=== PATIENT | female | born 1985 | race Caucasian/White ===

== ENCOUNTER 2017-07-04 15:02 | Inpatient (IN) | payer BC, SELFPAY ==
--- NOTE | 2017-07-04 15:27 | US_ITS ---
STUDY: RENAL ULTRASOUND - COMPLETE REASON FOR EXAM: Female, 31 years old. Flank pain TECHNIQUE: Ultrasound evaluation of the kidneys was performed with real-time and static ortega-scale imaging. COMPARISON: None. FINDINGS: RIGHT KIDNEY: Normal location of the right kidney, which is normal in size. The right kidney measures 11.4 cm. There is a normal cortex of the right kidney. The renal cortex measures 2.7 cm. There is no right renal mass or cyst. There are no right renal calculi. There is no right hydronephrosis. DISTAL RIGHT URETER: There is non-visualization of the distal right ureter. There is no demonstrated right ureterovesical junction calculus. There is no demonstrated right ureteral jet. LEFT KIDNEY: Normal location of the left kidney, which is normal in size. The left kidney measures 11.5 cm. There is a normal cortex of the left kidney. The renal cortex measures 2.1 cm. There is no left renal mass or cyst. There are no left renal calculi. There is no left hydronephrosis. DISTAL LEFT URETER: There is non-visualization of the distal left ureter. There is no demonstrated left ureterovesical junction calculus. There is no demonstrated left ureteral jet. The bladder is empty. US/Kidney and Bladder IMPRESSION: Normal ultrasound of the kidneys. Electronically Signed: Brendon Hartmann DO at 22:01 EDT , Service support ,
[2017-07-04 15:28] VITALS: BMI 27.0
--- NOTE | 2017-07-04 15:29 | PCM.HP.OB ---
History Date of Admission: 07/04/17 Final BEST: 12/30/17 Final BEST Source: US <20 weeks Gestational age: 14 Weeks and 3 Days History of this : @ 14.3 WKS WITH BILATERAL FLANK PAIN AND DYSURIA. TREATED FOR UTI BUT WORSENING BACK PAIN, LOW GRADE TEMP AT HOME. PT REPORTS CAME TO OFFICE WITH SEVERE BACK PAIN 08/06 - TYLENOL NOT HELPING. Pertinent Past Medical History: ASTHMA BACTRIM Current Medications Acetaminophen (Tylenol) 1,000 mg PO Q8H PRN PRN PRN Reason: ELEVATED TEMP Ceftriaxone Sodium (Rocephin) 1 gm in 50 mls @ 100 mls/hr IV Q24 FE Sodium Chloride () 1,000 mls @ 150 mls/hr IV .Q6H40M FE Oxycodone HCl (Oxyir) 5 mg PO Q4H PRN PRN PRN Reason: PAIN Smoking Status: Never smoker Alcohol: None Drug Use: none Number of Fetus(es): 1 Review of Systems Constitutional: Denies: Chills, Fever HEENT: Denies: Difficulty Swallowing Cardiovascular: Denies: Chest Pain, Light Headedness, Palpitations Respiratory: Denies: Cough Gastrointestinal: Denies: Abdominal Pain, Diarrhea, Nausea, Vomiting Genitourinary: Denies: Dysuria, Frequency, Urgency Musculoskeletal: Reports: - - BILATERAL FLANK PAIN Physical Exam General: Alert, Oriented x3 Cardiovascular: Regular rate Lungs: Clear to auscultation Abdomen: Soft, Non Tender, Gravid Extremities:: No clubbing, No edema, Other - + BILATERAL CVA TENDERNESS Assessment/Plan 31YO @ 14.3 WKS WITH PYELONEPHRITIS 1) ADMIT 2) RENAL ULTRASOUND 3) REGULAR DIET, IVF 4) BLOOD CULTURES X 1 5) CEFTRIAXONE 1G Q24HRS 6) TYLENOL AND OXYCODONE FOR PAIN 7) CBC TODAY REPEAT TOMORROW AM 8) BMP TODAY
[2017-07-04 15:38] VITALS: BP 120/77; PULSE 93; RESP 16; TEMP 36.7; O2SAT 99
[2017-07-04 16:11] LABS: Absolute Neutrophil Count 14.4 X10^3/uL (2.0-7.7); Basophil# 0.01 X10^3/uL; Basophil% 0.1 % (0-1); Eosinophil# 0.01 X10^3/uL; Eosinophils% 0.1 % (0-5); Hematocrit 36.6 % (37-47); Hemoglobin 12.7 g/dl (12.0-15.0); Lymphocyte % 4.4 % (19-41); Mean Corp Hgb Conc 34.7 g/gl (32-36); Mean Corpuscular Hgb 31.1 pg (27.0-32.0); Mean Corpuscular Volume 89.7 fL (81-99); Mean Platelet Vol. 9.6 fl (6.2-12.0); Monocyte# 0.93 X10^3/uL; Monocyte% 5.8 % (0-10); Neutrophil # 14.39 X10^3/uL (2.7-7.7); Neutrophil % 89.4 % (47-70); Platelet Count 179 K/mm3 (150-450); RBC Distribution Width CV 12.7 % (11.6-14.6); RBC Distribution Width SD 41.3 fl (35.1-43.9); Red Blood Count 4.08 M/mm3 (4.2-5.4); White Blood Count 16.1 K/mm3 (4.4-11.0)
[2017-07-04 16:12] LABS: POSITIVE DIFFERENTIAL NO
[2017-07-04 16:13] LABS: POSITIVE COUNT NO; POSITIVE MORPHOLOGY NO
[2017-07-04 16:38] LABS: Anion Gap 12 (5-15); BUN 6 mg/dL (7-18); BUN/Creat Ratio 10.4 RATIO (10-20); Calcium,Total 7.8 mg/dL (8.5-10.1); Chloride 104 mmol/L (98-107); Creatinine, Serum 0.58 mg/dL (0.55-1.02); EST Glomerular Filtration Rate 128 mL/min (>60); Est Glom Filt Rate - Afr Amer 154 mL/min (>60); Estimated Creatinine Clearance 129.15 ml/min; Glucose 76 mg/dL (74-106); Potassium 3.3 mmol/L (3.5-5.1); Sodium Level 135 mmol/L (136-145)
[2017-07-04] MEDS: 0.9% Normal Saline 1,000 ML 150 ML IV ×2 (17:18→23:48)
[2017-07-04] MEDS: Ceftriaxone 1 GM/50 ML BAG IV (18:53)
[2017-07-04] MEDS: oxyCODONE 5 MG Tablet PO ×2 (18:54→23:49)
[2017-07-04 21:25] VITALS: BP 114/77; PULSE 89; RESP 18; TEMP 37.1; O2SAT 100
[2017-07-04] MEDS: Acetaminophen 500 MG Tablet 1000 MG PO (21:39)
[2017-07-05] MEDS: HYDROmorphone 1 MG/ML Syringe IV (03:17)
[2017-07-05] MEDS: 0.9% NaCl Peripheral Flush Adult/Peds IV (03:18)
[2017-07-05 03:19] VITALS: BP 102/62; PULSE 103; RESP 20; TEMP 36.9; O2SAT 100
[2017-07-05 06:12] LABS: Absolute Lymphocyte Count 0.98 X10^3/ul (0.83-4.51); Absolute Neutrophil Count 10.5 X10^3/uL (2.0-7.7); Basophil# 0.01 X10^3/uL; Basophil% 0.1 % (0-1); Eosinophil# 0.03 X10^3/uL; Eosinophils% 0.2 % (0-5); Hemoglobin 10.8 g/dl (12.0-15.0); Lymphocyte # 0.98 X10^3/ul (4.0); Lymphocyte % 7.9 % (19-41); Mean Corp Hgb Conc 34.8 g/gl (32-36); Mean Corpuscular Hgb 31.8 pg (27.0-32.0); Mean Corpuscular Volume 91.2 fL (81-99); Mean Platelet Vol. 9.9 fl (6.2-12.0); Monocyte# 0.95 X10^3/uL; Monocyte% 7.6 % (0-10); Neutrophil # 10.45 X10^3/uL (2.7-7.7); Platelet Count 155 K/mm3 (150-450); RBC Distribution Width CV 12.3 % (11.6-14.6); White Blood Count 12.4 K/mm3 (4.4-11.0)
[2017-07-05 06:19] LABS: POSITIVE COUNT NO; POSITIVE DIFFERENTIAL NO; POSITIVE MORPHOLOGY NO
[2017-07-05] MEDS: 0.9% Normal Saline 1,000 ML 150 ML IV ×3 (06:29→19:43)
[2017-07-05] MEDS: Acetaminophen 500 MG Tablet 1000 MG PO ×3 (06:30→23:56)
[2017-07-05] MEDS: oxyCODONE 5 MG Tablet PO ×5 (06:31→23:56)
[2017-07-05 08:19] VITALS: BP 101/54; PULSE 77; RESP 16; TEMP 36.6; O2SAT 98
--- NOTE | 2017-07-05 10:05 | CASEMGMT ---
MELIA LOBATO Face to Face with patient for initial transition planning/care coordination assessment. MELIA LOBATO introduced self and role at [facility]. Patient sitting in chair, alert and oriented. Patient willing to participate in assessment and is able to answer all questions appropriately. Care providers, pharmacy, and demographics verified. Patient lives with spouse in a 1 story home. Patient drives but also can rely on for transportation. Patient wishes to discharge home, denies needs at this time. Patient states that she does not have and PCP, MELIA LOBATO will provide list of local providers to patient. Patient states she has no further needs or concerns at this time. CM to follow for discharge planning needs that may arise. Disposition Plan: Patient to discharge home with family support and follow-up plans in place.
[2017-07-05] MEDS: Ceftriaxone 1 GM/50 ML BAG IV (10:28)
[2017-07-05 11:27] VITALS: BP 94/53; PULSE 63; RESP 16; TEMP 36.7; O2SAT 98
[2017-07-05 14:12] LABS: Absolute Lymphocyte Count 0.74 X10^3/ul (0.83-4.51); Absolute Neutrophil Count 9.5 X10^3/uL (2.0-7.7); Basophil# 0.01 X10^3/uL; Basophil% 0.1 % (0-1); Eosinophil# 0.05 X10^3/uL; Eosinophils% 0.5 % (0-5); Hematocrit 32.1 % (37-47); Hemoglobin 11.1 g/dl (12.0-15.0); Lymphocyte # 0.74 X10^3/ul (4.0); Lymphocyte % 6.7 % (19-41); Mean Corp Hgb Conc 34.6 g/gl (32-36); Mean Corpuscular Hgb 31.8 pg (27.0-32.0); Mean Platelet Vol. 9.2 fl (6.2-12.0); Monocyte# 0.76 X10^3/uL; Monocyte% 6.9 % (0-10); Neutrophil # 9.48 X10^3/uL (2.7-7.7); Neutrophil % 85.7 % (47-70); Platelet Count 156 K/mm3 (150-450); RBC Distribution Width CV 12.4 % (11.6-14.6); RBC Distribution Width SD 40.6 fl (35.1-43.9); Red Blood Count 3.49 M/mm3 (4.2-5.4); White Blood Count 11.1 K/mm3 (4.4-11.0)
[2017-07-05 14:21] LABS: POSITIVE COUNT NO; POSITIVE DIFFERENTIAL NO; POSITIVE MORPHOLOGY NO
[2017-07-05 14:50] VITALS: BP 102/62; PULSE 90; RESP 16; TEMP 37.1; O2SAT 100
--- NOTE | 2017-07-05 17:46 | PN.OBGYN_ITS ---
Patient Problems: Active and Suspected Problems Pyelonephritis affecting (Acute) Subjective: Patient reports her flank pain has decreased as the day has progressed though she still reports bilateral flank pain to firm palpation. Patient denies dysuria , vaginal bleeding, or other vaginal discharge. IV Rocephin infusing as ordered. Patient denies fever, denies SOB, denies heart palpitations. Objective: + CVAT bilaterally with pain elicited Left > Right side Abd: NT x 4 quadrants, no suprapubic pain SVE: deferred - Physical Exam General: Alert, Oriented x3, Cooperative HEENT: Atraumatic, Normocephalic Oral: Moist Mucosa Neck: Supple Lungs: Clear to auscultation, Normal air movement Cardiovascular: Regular rate, No murmurs Abdomen: Soft, Non Tender, Appropriate for Gestational Age, - - + CVAT noted Left > Right Extremities: No edema, Capillary Refill Less than 3 Seconds Skin: No rashes, No breakdown Musculoskeletal: No Tenderness to Palpation of Joints or Extremities Neurological: Cranial nerves II-XII grossly intact Psych/Mental Status: Normal Affect, Appropriate, Alert and oriented to time, place, person, mood and affect Vital Signs Temp Pulse Resp BP Pulse Ox 98.7 F 90 16 102/62 100 07/05/17 14:50 07/05/17 14:50 07/05/17 14:50 07/05/17 14:50 07/05/17 14:50 Oxygen Delivery Method Room Air Weight: 167 lb 5.294 oz Body Mass Index (BMI) 27.0 Intake and Output for Last 24 Hours 07/03/17 07/04/17 07/05/17 23:59 23:59 23:59 Intake Total 2581 / 2581 3916 / 3916 Balance 2581 / 2581 3916 / 3916 Laboratory Tests Past 24 Hrs 07/05/17 07/05/17 05:54 14:00 WBC 12.4 H 11.1 H RBC 3.40 L 3.49 L Hgb 10.8 L 11.1 L Hct 31.0 L 32.1 L MCV 91.2 92.0 MCH 31.8 31.8 MCHC 34.8 34.6 RDW 12.3 12.4 RDW Differential 40.0 40.6 Plt Count 155 156 MPV 9.9 9.2 Immature Gran % (Auto) 0.200 0.100 Neut % (Auto) 84.0 H 85.7 H Lymph % (Auto) 7.9 L 6.7 L [place] % (Auto) 7.6 6.9 Eos % (Auto) 0.2 0.5 Baso % (Auto) 0.1 0.1 Absolute Neuts (auto) 10.5 H 9.5 H Absolute Lymphs (auto) 0.98 0.74 L Total Counted Not Reportable Not Reportable Medical Necessity - Tobacco Use Smoking Status: Never smoker Assessment/Plan Active and Suspected Problems Pyelonephritis affecting (Acute) A: 31 y/o @ 14.4 weeks gestation, Acute Pyelonephritis P: 1) Blood Culture- pending 2) CBC - WBCs trending down to normal range. Anticipate repeat CBC in AM 3) Anticipate discharge to home tomorrow pending resolution of flank pain - plan to discharge patient home with Keflex 500mg PO q 6 hours x 7 days followed by Macrobid 100mg PO daily until delivery for UTI prophylaxis. 4) Dr. Jesse PEACE informed of patient status and is in agreement with plan of care. Yaritza Dwyer CNM
[2017-07-05 19:45] VITALS: BP 112/66; PULSE 87; RESP 18; TEMP 36.4; O2SAT 100
[2017-07-05 19:58] VITALS: TEMP 36.6
[2017-07-06 01:45] VITALS: BP 95/52; PULSE 83; RESP 16; TEMP 36.8; O2SAT 98
[2017-07-06] MEDS: 0.9% Normal Saline 1,000 ML 150 ML IV ×2 (01:53→08:15)
[2017-07-06 08:06] VITALS: PULSE 84; RESP 16; TEMP 37.1; O2SAT 98
[2017-07-06] MEDS: Acetaminophen 500 MG Tablet 1000 MG PO (08:16)
--- NOTE | 2017-07-06 08:36 | PCM.PN.OB ---
Patient Problems: Active and Suspected Problems Pyelonephritis affecting (Acute) Subjective: Flank pain is improved. Denies concerns. - Physical Exam General: Alert, Oriented x3 Abdomen: Soft, Non Tender, Non-Distended, Gravid - Back; no flank tenderness Extremities: No Calf Tenderness Vital Signs Temp Pulse Resp BP Pulse Ox 98.7 F 84 16 95/52 L 98 07/06/17 08:06 07/06/17 08:06 07/06/17 08:06 07/06/17 01:45 07/06/17 08:06 Oxygen Delivery Method Room Air Weight: 167 lb 5.294 oz Body Mass Index (BMI) 27.0 Intake and Output for Last 24 Hours 07/04/17 07/05/17 07/06/17 23:59 23:59 23:59 Intake Total 2581 / 2581 7339 / 7339 1354 / 1354 Balance 2581 / 2581 7339 / 7339 1354 / 1354 Laboratory Tests Past 24 Hrs 07/05/17 14:00 WBC 11.1 H RBC 3.49 L Hgb 11.1 L Hct 32.1 L MCV 92.0 MCH 31.8 MCHC 34.6 RDW 12.4 RDW Differential 40.6 Plt Count 156 MPV 9.2 Immature Gran % (Auto) 0.100 Neut % (Auto) 85.7 H Lymph % (Auto) 6.7 L S[place] % (Auto) 6.9 Eos % (Auto) 0.5 Baso % (Auto) 0.1 Absolute Neuts (auto) 9.5 H Absolute Lymphs (auto) 0.74 L Total Counted Not Reportable Medical Necessity - Tobacco Use Smoking Status: Never smoker Assessment/Plan Active and Suspected Problems Pyelonephritis affecting (Acute) HD#3 with pyelonephritis at 14&5 weeks Plan for d/c home today Rx keflex qid for 1 week F/u in office next week or PRN All questions answered & patient agrees with plan
--- NOTE | 2017-07-06 08:42 | PCM.DC ---
- Discharge Diagnoses Current Active Problems: Current Active and Chronic Problems Pyelonephritis affecting (Acute) You will use the following diet at home:: Regular Discharge Activity: May Drive, May Shower Call your doctor if you observe: Fever of 101 or Higher, Coldness, Increased Pain, Numbness or Tingling, Change in Color, Inability to urinate, Inability to have a bowel movement, Using more than one pad per hour, Shortness of breath, Fainting spells, Chest pain, Increased palpitations (irregular heartbeat), Uncontrolled pain Allergies/Adverse Reactions: Allergies Penicillins Adverse Reaction (Verified 07/04/17 16:02) Hives Sulfa (Sulfonamide Antibiotics) Adverse Reaction (Verified 07/04/17 16:02) Hives Medications to take at Discharge Albuterol Sulfate [Proventil Hfa] 90 mcg PRN 07/04/17 Pediatric Multivit Comb. No.49 [Flintstones Gummies] 1 each PO DAILY 07/04/17 Acetaminophen [Tylenol Extra Strength] 1,000 mg PO Q8 PRN #60 tab 07/06/17 Cephalexin [Keflex] 500 mg PO Q6 #28 cap 07/06/17 The following prescriptions were given: Acetaminophen [Tylenol Extra Strength] 1,000 mg PO Q8 PRN #60 tab PRN Reason: Pain Cephalexin [Keflex] 500 mg PO Q6 #28 cap Primary Care Physician: Care Physician,No Primary [Primary Care Provider] -
[2017-07-06] MEDS: Ceftriaxone 1 GM/50 ML BAG IV (10:04)
[2017-07-06 13:32] VITALS: BP 108/67; PULSE 86; RESP 18; TEMP 37.1; O2SAT 100
== END 2017-07-06 13:42 | disposition home or self-care (01) | DRG 781 ==
PROVIDERS: Admitting Provider Obstetrics & Gynecology; Visit Provider Obstetrics & Gynecology
DX: O23.02 Infections of kidney in pregnancy, second trimester (principal); N10 Acute pyelonephritis; Z3A.14 14 weeks gestation of pregnancy
CPT/HCPCS: 36415; 76770; 80048; 85025; 87040; J7030; A4216

== ENCOUNTER 2018-01-08 05:26 | Inpatient (IN) | payer BC, SELFPAY ==
--- NOTE | 2018-01-06 19:55 | HP.PCM_ITS ---
- Problem List (1) 41 weeks gestation of Status: Acute History Date of Admission: 07/04/17 Final BEST: 12/30/17 Final BEST Source: US <20 weeks Gestational age: 41 Weeks and 0 Days History of this : This is a 32 year-old, G 1, P 0, at 41 weeks gestational age. Denies ctx, vb, lof. Good FM. significant for the following: - pyelonephritis in : has been on suppressive therapy - hx of depression and anxiety: has been off of medication in the , was previously taking Xanax and Celexa - poor weight gain in the : US at 32 wks EFW 2071g (50%) Medical History: Medical History (Last Updated 01/06/18 @ 19:53 by Nasreen Goldman DO) Anxiety F41.9 Depression F32.9 Surgical History: Surgical History (Last Updated 01/06/18 @ 19:55 by Nasreen Goldman DO) History of throat surgery Z98.890 S/P foot surgery, left Z98.890 S/P wrist surgery Z98.890 Allergies Penicillins Adverse Reaction (Verified 07/04/17 16:02) Hives Sulfa (Sulfonamide Antibiotics) Adverse Reaction (Verified 07/04/17 16:02) Hives Home Medications: Home Medications Albuterol Sulfate [Proventil Hfa] 90 mcg PRN 07/04/17 Pediatric Multivit Comb. No.49 [Flintstones Gummies] 1 each PO DAILY 07/04/17 Acetaminophen [Tylenol Extra Strength] 1,000 mg PO Q8 PRN #60 tab 07/06/17 Cephalexin [Keflex] 500 mg PO Q6 #28 cap 07/06/17 Smoking Status: Never smoker Number of Fetus(es): 1 Heart Tracing: FHT 120/mod marlen/+accels/no decels TOCO Analysis: quiet History Past Pregnancies: Past Pregnancies Delivery Date Name GA/Weeks Outcome Route Weight Gender Labor Length Anesthesia Delivery Location Provider FOB Labs: GBS neg, Rh+, RI, RPR NR, HIV NR, HepB neg, GC/CT neg, 1hr GTT 115, Expected Delivery Method: Spontaneous Vaginal Review of Systems Gynecological: Reports: - - No ctx, vb, lof, Good FM Physical Exam General: Alert, Oriented x3 HEENT: Atraumatic Lungs: - - No increased resp effort Abdomen: Soft, Non Tender, Gravid Extremities:: No edema Neurological: Neuro grossly intact DOCTORATE OF CHIROPRACTIC: Normal external genitalia Estimated gestational size: Appropriate for gestational size Presentation: Cephalic Cervix Dilation (cm): 1 Station: -2 Effacement (%): 70 Assessment/Plan All Active Problems 41 weeks gestation of (Acute) Pyelonephritis affecting (Acute) This is a 32 year-old, G 1, P 0, at 41 weeks gestational age who presents for scheduled IOL. - Intracervical lawrence and PO cytotec induction, followed by pitocin - Pt desires epidural - GBS negative - Routine intrapartum care - Discussed expectations with patient
[2018-01-06 20:27] VITALS: BMI 41.1
[2018-01-06 20:55] LABS: Hematocrit 36.3 % (37-47); Hemoglobin 12.4 g/dl (12.0-15.0); Mean Corp Hgb Conc 34.2 g/gl (32-36); Mean Corpuscular Hgb 31.5 pg (27.0-32.0); Mean Corpuscular Volume 92.1 fL (81-99); Mean Platelet Vol. 10.9 fl (6.2-12.0); Platelet Count 206 K/mm3 (150-450); RBC Distribution Width CV 13.3 % (11.6-14.6); RBC Distribution Width SD 44.3 fl (35.1-43.9); Red Blood Count 3.94 M/mm3 (4.2-5.4); White Blood Count 11.7 K/mm3 (4.4-11.0)
[2018-01-06 21:05] LABS: Scan Indicated on CBC? Y/N NO
--- NOTE | 2018-01-06 22:51 | PCM.PN.BLA ---
Progress Note Intracervical lawrence placed in usual fashion. FHT category 1.
[2018-01-06] MEDS: 0.9% Normal Saline 100 ML IV.SOLN. INTRA-UTER (23:09)
[2018-01-06] MEDS: miSOPROStol 25 MCG TABLET PO (23:10)
[2018-01-06] MEDS: Acetaminophen 325 MG Tablet PO (23:16)
[2018-01-07] MEDS: Nalbuphine 10 MG/ML Ampul IV ×2 (01:27→16:47)
[2018-01-07] MEDS: Oxytocin 30 units/NS 500 ml 30 UNITS/500 ML IV.SOLN IV (08:13)
[2018-01-07] MEDS: Lactated Ringers 1,000 ML 50 ML IV ×3 (08:13→21:58)
--- NOTE | 2018-01-07 08:37 | PCM.PN.BLA ---
Progress Note Collier out this morning. Pt doing well. Pit started at 2 mu/min. Discussed plan of care for today with patient. Continue current management.
[2018-01-07] MEDS: fentaNYL-bupivacaine (epidural) 100 ML BAG EPIDURAL ×2 (18:45→23:28)
--- NOTE | 2018-01-07 21:03 | PN_ITS ---
Progress Note Pt s/p epidural and comfortable. Doing well. Cvx 6/80/-1, no membranes palpated. SROM. IUPC and FSE placed. Pit at 14 mu/min. FHT 115/mod marlen/+accels/+occasional variable decels. [place] difficult to read. Continue current management.
[2018-01-07] MEDS: Mag Hydrox/Al Hydrox/Simeth 30 ML UDC PO (21:10)
[2018-01-08] MEDS: Ondansetron 4 MG/2 ML Vial IV (01:42)
[2018-01-08] MEDS: Amnioinfusion- 0.9% NS 1,000 ML IV.SOLN. 600 ML INTRA-UTER (02:19)
--- NOTE | 2018-01-08 02:45 | PN_ITS ---
Progress Note Cvx 10/100/+1 station. FHT 160mod marlen/+variable decels with pushing/no accels. [place] w/ ctx's q 1-3 min. Patient not feeling pressure with epidural. Given this and variable decels with pushing, will have anesthesia turn epidural down and give patient a 15-20 min break before pushing pushing again.
[2018-01-08] MEDS: Lactated Ringers 1,000 ML 50 ML IV (03:17)
[2018-01-08] MEDS: Oxytocin 30 units/NS 500 ml 30 UNITS/500 ML IV.SOLN 334 UNITS IV (04:48)
--- NOTE | 2018-01-08 05:15 | PCM.OB.VAG ---
- Problem List (1) 41 weeks gestation of Status: Acute Vaginal Delivery Maternal Presentation: Medically Indicated Induction Method of Induction: Pitocin, Collier Bulb, Cytotec Medical Reason for Induction: Post term Amniotic Membrane Rupture Type: Spontaneous Amniotic Fluid Description: Clear Final BEST: 12/30/17 Gestational age: 41 Weeks and 2 Days Date of Procedure: 01/08/18 Pre-Operative Diagnosis: IUP at 41 wks gestation, intolerance to labor Post-Operative Diagnosis: As above Surgery/ Procedure Performed: Vacuum Assisted Vaginal Delivery Type of Anesthesia: Epidural Description of Procedure: Patient complete and pushing for over 2 hours. in OP position and +2 station. Fetus AGA, pelvis adequate. Collier in place draining blood tinged urine. Epidural in place. heart tracing continued to show variable and late decelerations with pushing. Discussed risks, benefits, and alternatives to a vacuum-assisted vaginal delivery. Discussed risks for including but not limited to scalp lacerations, cephalohematoma, subgaleal hematoma. Discussed alternative: section. Patient verbally consented to a vacuum assisted vaginal delivery. Vacuum applied with release of suction in between each contraction. Vacuum was used during 4-5 contractions without any pop-offs. Vacuum was then removed. A midline episiotomy was made. Head was delivered in OP position. Anterior shoulder, posterior shoulder, and body of infant delivered without force or delay. VFI placed on mother's abdomen. Apgars were 8 and 9. Cord clamped and cut after 60 sec by FOB. Cord gases collected. Placenta delivered intact with 3 vessel cord. Uterus explored x 1. Fundus firm and bleeding hemostatic. 2nd degree perineal laceration repaired in usual fashion using 3-0 vicryl. Bleeding hemostatic. EBL 500 cc. Placental Delivery Description: Expressed Cord Vessel Description: 3 Vessels Cord Gases drawn per routine: ABG, VBG Drain: Collier to straight drain Estimated Blood Loss: 500 Infant A gender: Female (1 minute): 8 (5 minute): 9 Episiotomy Description: Midline Laceration: 2nd degree Medications given after delivery: IV Pitocin
[2018-01-08] MEDS: Oxytocin 30 units/NS 500 ml 30 UNITS/500 ML IV.SOLN 167 UNITS IV (05:18)
[2018-01-08] MEDS: Acetaminophen 500 MG Tablet 1000 MG PO ×2 (06:25→16:56)
[2018-01-08] MEDS: Ferrous Sulfate 325 MG Tablet PO (10:27)
[2018-01-08 12:15] VITALS: BP 124/69; PULSE 88; RESP 18; TEMP 37.3
[2018-01-08] MEDS: Ibuprofen 600 MG Tablet PO ×2 (14:56→23:30)
[2018-01-08 16:30] VITALS: BP 105/63; PULSE 90; RESP 18; TEMP 36.7
[2018-01-08] MEDS: Dibucaine 30 GM Tube 1 APPLIC TOPICAL (16:55)
[2018-01-08 20:00] VITALS: BP 98/56; PULSE 78; RESP 18; TEMP 36.8
[2018-01-08 23:50] VITALS: BP 110/72; PULSE 84; RESP 16; TEMP 36
[2018-01-09 03:30] VITALS: BP 99/60; PULSE 77; RESP 18; TEMP 36.8
--- NOTE | 2018-01-09 08:23 | PCM.PN.OB ---
Patient Problems: Active and Suspected Problems (Last Updated 01/06/18 @ 19:53 by Nasreen Goldman DO) 41 weeks gestation of (Acute) Subjective: Doing well. She has no complaints and feels ready to go home. Breast-feeding without difficulty. Ambulating and voiding without difficulty. Tolerating regular diet without nausea or vomiting denies lightheadedness, dizziness, chest pain, shortness of breath, leg pain. Lochia normal. - Physical Exam General: Alert, Oriented x3 HEENT: Atraumatic Lungs: - - No increased resp effort Abdomen: Soft, Non Tender, - - FF Extremities: No edema, No Calf Tenderness Skin: No rashes Neurological: Neuro grossly intact Psych/Mental Status: Normal Affect, Appropriate Vital Signs Temp Pulse Resp BP 98.3 F 77 18 99/60 01/09/18 03:30 01/09/18 03:30 01/09/18 03:30 01/09/18 03:30 Weight: 183 lb 6.793 oz Body Mass Index (BMI) 41.1 Intake and Output for Last 24 Hours 01/07/18 01/08/18 01/09/18 23:59 23:59 23:59 Intake Total 1410 / 1410 3596 / 3596 Output Total 900 / 900 2700 / 2700 Balance 510 / 510 896 / 896 Medical Necessity - Tobacco Use Smoking Status: Never smoker Assessment/Plan All Active Problems (Last Updated 01/06/18 @ 19:53 by Nasreen Goldman DO) Pyelonephritis affecting (Acute) 41 weeks gestation of (Acute) Patient is day 1 from a vacuum-assisted vaginal delivery. - without difficulty - Declines control - Doing well and desires to go home - D/c today. Reviewed discharge instructions
--- NOTE | 2018-01-09 08:26 | DCINST_ITS ---
Discharge Diet: No Restrictions Discharge Activity: May Drive, May Shower, May Take a Tub Bath May resume sexual activity in: 4-6 weeks Weight Bearing Status: Full weight bearing Lifting Restrictions: None Call your doctor if you observe: Fever of 101 or Higher, Inability to urinate, Inability to have a bowel movement, Using more than one pad per hour, Shortness of breath, Dizziness, Chest pain, Increased palpitations (irregular heartbeat), Calf discomfort, Uncontrolled pain Additional Instructions: If you experience any of the following, contact your healthcare provider. * Bleeding that soaks a pad every hour for 2 hours * Fever 100.4 or higher * Unrelieved incision or abdominal pain * Swelling, redness, discharge or bleeding from your incision or episiotomy site * Your incision begins to separate * Problems urinating (including inability to urinate or burning while urinating). * Visual changes * Severe headache * Flu-like symptoms * Pain or redness in one of both of your breasts * Pain, warmth, tenderness or swelling in your legs, especially the calf area * Frequent nausea and vomiting * Symptoms of depression or anxiety If you experience any of the following, call 911 or go to the nearest Emergency Room. * Chest pain * Problems breathing * Seizure activity * Partial or complete paralysis of a body part, slurred speech, weakness or drooping of the face, or a sudden inability to walk or hold your balance Allergies/Adverse Reactions: Allergies Penicillins Adverse Reaction (Verified 07/04/17 16:02) Hives Sulfa (Sulfonamide Antibiotics) Adverse Reaction (Verified 07/04/17 16:02) Hives Medications to take at Discharge Albuterol Sulfate [Proventil Hfa] 90 mcg INHALATION Q6H PRN PRN 07/04/17 Pediatric Multivit Comb. No.49 [Flintstones Gummies] 2 each PO DAILY 07/04/17 Acetaminophen [Tylenol Extra Strength] 1,000 mg PO Q8 PRN #60 tab 07/06/17 Cephalexin [Keflex] 500 mg PO Q6 01/07/18 Ferrous Sulfate [Iron] 325 mg PO DAILY 01/07/18 When: In 1-2 weeks if you desire. Also in 4-6 weeks for a appointment. Primary Care Physician: Care Physician,No Primary [Primary Care Provider] - Test Results: Test results from this visit will be discussed in further detail at your follow- up appointment, if applicable.
[2018-01-09 08:35] VITALS: BP 129/79; PULSE 93; RESP 18; TEMP 36.8
[2018-01-09] MEDS: Ferrous Sulfate 325 MG Tablet PO (08:46)
[2018-01-09] MEDS: Acetaminophen 500 MG Tablet 1000 MG PO ×2 (08:46→16:50)
[2018-01-09] MEDS: Senna/Docusate Sodium 1 Tablet PO (08:47)
--- NOTE | 2018-01-09 12:16 | CASEMGMT ---
Social Work Note Please see attached assessment. Information obtained from: Medical record, MOB and FOB. MOB is alert and oriented x4 and pleasant upon presentation. FOB is holding . Education: MOB graduated high school. Able to read and write and denies any comprehension concerns. Employment: Both MOB and FOB are employed FT. MOB has been approved for 12 weeks maternity leave. Report financial stability. Transportation: They report to have access to transportation. MH hx: MOB reports hx of anxiety and depression. Has not been on medication throughout , but was previously on Celexa and Xanax (PRN). This was prescribed through her PCP. Educated to PP Depression and informed to contact either her PCP or OB is symptoms persisted beyond 2 weeks. Substance Use: Denies substance use hx. No further needs or concerns expressed. Both made aware that SW is available if needs arise. Angie Barker, POWERPLANT OPERATOR, JUDY
[2018-01-09 14:51] VITALS: BP 96/57; PULSE 73; RESP 16; TEMP 37.2
[2018-01-09] MEDS: Etonogestrel 68 MG IMPLANT SQ (17:31)
--- NOTE | 2018-01-09 17:39 | PCM.OP.BLANK ---
Problem List (1) 41 weeks gestation of Status: Acute Operative Report Date of Procedure: 01/09/18 Discussed risks, benefits, and alternatives of Nexplanon. Reviewed irregular bleeding profile with Nexplanon. Patient signed consent. Left arm was selected for Nexplanon placement. A 10 cm site was marked from the medial epicondyle. Chlorhexidine was used to prep the area. 3cc of 1% lidocaine was injected along the site of Nexplanon placement. The Nexplanon device was inserted subcutaneously and the Nexplanon reno was released subcutaneously. The reno was palpated by myself as well as the patient in the correct position. Steri-Strips were placed over the incision site. A pressure dressing was placed over the site. Patient tolerated the procedure well.
--- NOTE | 2018-01-09 18:50 | NURSING ---
Dr. Manuel notified of baby under lights at this time. Pt will not be discharged until tomorrow. Dr. Manuel canceled DC order and states she will contact Dr. Goldman.
[2018-01-09 22:00] VITALS: BP 113/71; PULSE 82; RESP 16; TEMP 37.1; O2SAT 99
[2018-01-09] MEDS: Ibuprofen 600 MG Tablet PO (22:14)
[2018-01-10 02:15] VITALS: BP 104/74; PULSE 82; RESP 18; TEMP 36.6; O2SAT 96
--- NOTE | 2018-01-10 07:55 | PCM.PN.OB ---
Patient Problems: Active and Suspected Problems (Last Updated 01/06/18 @ 19:53 by Nasreen Goldman DO) 41 weeks gestation of (Acute) Subjective: Patient doing well this AM. Has no complaints and ready to go home. Ambulating and spontaneously voiding. Tolerating a regular diet without nausea or vomiting. without difficulty. Denies lightheadedness, dizziness, CP, SOB, leg pain. - Physical Exam General: Alert, Oriented x3 HEENT: Atraumatic Lungs: - - No increased resp effort Abdomen: Soft, Non Tender, - - FF@U-1 Extremities: No edema, No Calf Tenderness Skin: No rashes Neurological: Neuro grossly intact Psych/Mental Status: Normal Affect, Appropriate Vital Signs Temp Pulse Resp BP Pulse Ox 97.8 F 82 18 104/74 96 01/10/18 02:15 01/10/18 02:15 01/10/18 02:15 01/10/18 02:15 01/10/18 02:15 Oxygen Delivery Method Room Air Weight: 183 lb 6.793 oz Body Mass Index (BMI) 41.1 Intake and Output for Last 24 Hours 01/08/18 01/09/18 01/10/18 23:59 23:59 23:59 Intake Total 3596 / 3596 Output Total 2700 / 2700 Balance 896 / 896 Medical Necessity - Tobacco Use Smoking Status: Never smoker Assessment/Plan All Active Problems (Last Updated 01/06/18 @ 19:53 by Nasreen Goldman DO) Pyelonephritis affecting (Acute) 41 weeks gestation of (Acute) PPD#2 s/p VAVD - Doing well - AF, VSS - PPBC: Nexplanon placed yesterday - Dispo: D/c home
--- NOTE | 2018-01-10 08:12 | DCINST_ITS ---
Discharge Diet: No Restrictions Discharge Activity: May Drive, May Shower, May Take a Tub Bath May resume sexual activity in: 4-6 weeks Weight Bearing Status: Full weight bearing Call your doctor if you observe: Fever of 101 or Higher, Inability to urinate, Inability to have a bowel movement, Using more than one pad per hour, Shortness of breath, Dizziness, Chest pain, Increased palpitations (irregular heartbeat), Calf discomfort, Uncontrolled pain Additional Instructions: If you experience any of the following, contact your healthcare provider. * Bleeding that soaks a pad every hour for 2 hours * Fever 100.4 or higher * Unrelieved incision or abdominal pain * Swelling, redness, discharge or bleeding from your incision or episiotomy site * Your incision begins to separate * Problems urinating (including inability to urinate or burning while urinating). * Visual changes * Severe headache * Flu-like symptoms * Pain or redness in one of both of your breasts * Pain, warmth, tenderness or swelling in your legs, especially the calf area * Frequent nausea and vomiting * Symptoms of depression or anxiety If you experience any of the following, call 911 or go to the nearest Emergency Room. * Chest pain * Problems breathing * Seizure activity * Partial or complete paralysis of a body part, slurred speech, weakness or drooping of the face, or a sudden inability to walk or hold your balance Allergies/Adverse Reactions: Allergies Penicillins Adverse Reaction (Verified 07/04/17 16:02) Hives Sulfa (Sulfonamide Antibiotics) Adverse Reaction (Verified 07/04/17 16:02) Hives Medications to take at Discharge Albuterol Sulfate [Proventil Hfa] 90 mcg INHALATION Q6H PRN PRN 07/04/17 Pediatric Multivit Comb. No.49 [Flintstones Gummies] 2 each PO DAILY 07/04/17 Acetaminophen [Tylenol Extra Strength] 1,000 mg PO Q8 PRN #60 tab 07/06/17 Cephalexin [Keflex] 500 mg PO Q6 01/07/18 Ferrous Sulfate [Iron] 325 mg PO DAILY 01/07/18 Primary Care Physician: Care Physician,No Primary [Primary Care Provider] - Test Results: Test results from this visit will be discussed in further detail at your follow- up appointment, if applicable.
[2018-01-10 08:26] VITALS: BP 112/70; PULSE 76; RESP 16; TEMP 36.9; O2SAT 100
[2018-01-10] MEDS: Ferrous Sulfate 325 MG Tablet PO (09:07)
--- NOTE | 2018-01-16 16:31 | NURSING ---
Follow-up phone call and Mom states that her milk is in and feeding well. Discharge went well and was readmitted for bili lights but doing well now. Shelly CÁRDENAS
== END 2018-01-10 12:39 | disposition home or self-care (01) | DRG 806 ==
PROVIDERS: Admitting Provider Obstetrics & Gynecology; Referring Provider Obstetrics & Gynecology; Visit Provider Obstetrics & Gynecology
DX: O75.3 Other infection during labor (principal); N12 Tubulo-interstitial nephritis, not specified as acute or chronic; Z37.0 Single live birth; O48.0 Post-term pregnancy; Z3A.41 41 weeks gestation of pregnancy; O76 Abnormality in fetal heart rate and rhythm complicating labor and delivery; O70.1 Second degree perineal laceration during delivery; O75.89 Other specified complications of labor and delivery; J45.909 Unspecified asthma, uncomplicated; Z79.2 Long term (current) use of antibiotics; Z79.51 Long term (current) use of inhaled steroids
CPT/HCPCS: 59025; 59050; 85027; 86850; 86900; J7030; J7120; A4216; J2405; J3490

== ENCOUNTER 2019-12-24 13:23 | Inpatient (IN) | payer BC, SELFPAY ==
[2019-12-24 13:24] VITALS: BP 114/89; PULSE 91; RESP 17; TEMP 36.1; O2SAT 99; BMI 27.6
--- NOTE | 2019-12-24 13:29 | ED.RN ---
CALLED FOR EKG
--- NOTE | 2019-12-24 13:39 | NURSING ---
NO OLD EKGS
--- NOTE | 2019-12-24 14:19 | EKG12_ITS ---
Test Reason : CP Blood Pressure : / mmHG Vent. Rate : 082 BPM Atrial Rate : 082 BPM P-R Int : 134 ms QRS Dur : 086 ms QT Int : 378 ms P-R-T Axes : 047 084 064 degrees QTc Int : 441 ms Normal sinus rhythm with sinus arrhythmia Normal ECG Confirmed by PILY PEACE, YOAV ([id number]), supervising editor trailer OPAL PIÑA ([id number]) on 12/26/2019 9:06:28 AM Referred By: HOMERO Confirmed By:YOAV NASCIMENTO MD
--- NOTE | 2019-12-24 14:19 | RAD_ITS ---
STUDY: X-RAY CHEST REASON FOR EXAM: Female, 34 years old. CHEST PAIN. HURTS WITH INSPIRATION TECHNIQUE: Single AP portable view of the chest. COMPARISON: None. FINDINGS: EKG electrodes are seen. The lungs are clear and expanded. Scattered calcified granulomas. There is no demonstrated pleural abnormality. Normal size heart. Normal mediastinum and josefina. Normal visualized pulmonary arteries. Normal visualized aortic arch and descending thoracic aorta. Normal visualized thoracic spine. Normal visualized ribs, clavicles, and shoulders. There is no demonstrated abnormality of the visualized soft tissue structures of the upper abdomen. RAD/Chest 1 View (Portable) IMPRESSION: Normal x-ray examination of the chest. Electronically Signed: Ludwig Kim, at 15:30 EDT , Service support ,
--- NOTE | 2019-12-24 14:24 | NURSING ---
NO OLD EKGS
--- NOTE | 2019-12-24 14:52 | ED.DCSUM_ITS ---
History of Present Illness Chief Complaint: Chest Pain Informant: Patient Narrative: Patient is a 34-year-old female with a past medical history of GERD who presents to the emergency department for right upper quadrant/epigastric and lower rib pain on that side. This has been going on for multiple months. Over the past 3 days it has becoming very constant. She describes as a very severe sharp pain. It comes and goes. She currently rates as a 5 out of 10. No radiation of the pain. No nausea/vomiting with this. She does not believe it is her GERD as it does not go up into her chest in the midline. She did take her omeprazole which did not give her any relief. She also tried Tylenol today which did not help. She states that bending forward as well as small shallow breaths alleviate the symptoms until the episode passes. She denies any history of heart attacks, DVT/PE. No leg swelling or calf pain. She is on Depo for control. She does not smoke cigarettes. She has never been worked up before in the past for this that only occurred once a week before and went away after a few hours. She denies any change in bowel habits. No fevers or chills. No cough, cold, congestion. Past Medical History - Allergies and Home Meds Allergies/Adverse Reactions: Allergies Penicillins Adverse Reaction (Verified 12/24/19 13:26) Hives Sulfa (Sulfonamide Antibiotics) Adverse Reaction (Verified 12/24/19 13:26) Hives Prior records reviewed: Yes Past Medical History: - - GERD Surgical History: - - Rib removal for thoracic outlet syndrome Smoking Status: Never smoker Alcohol: Rare - Family History Maternal Family History: Reports: No pertinent history Review of Systems General: Denies: Chills, Fever, Sweats Eyes: Denies: Visual changes - bilaterally, Diplopia ENT: Denies: Rhinorrhea, Sore throat Cardiovascular: Reports: Chest pain. Denies: Palpitations Respiratory: Denies: Dyspnea, Cough, Dyspnea on exertion Gastrointestinal: Reports: Abdominal pain. Denies: Nausea, Vomiting, Diarrhea, Melena, Hematochezia Genitourinary: Denies: Dysuria, Hematuria, Frequency Musculoskeletal: Denies: Back pain, Extremity Pain Skin: Denies: Rash, Wounds Neurological: Denies: Headache, Weakness, Numbness Physical Exam Vital Signs/Narrative: Vital Signs Temp Pulse Resp BP Pulse Ox 12/24/19 13:24 96.9 F L 91 17 114/89 H 99 General: Well nourished, Well developed, No Acute Distress Head: Normocephalic, Atraumatic Eyes: Perrl, EOMI ENT: Moist mucous membranes, No rhinorrhea Neck: Supple, Nontender Cardiovascular: Regular rate, Regular rhythm, No murmurs Respiratory: No distress, CTA bilaterally, Chest nontender Abdomen: Soft, Nondistended, Normal bowel sounds, Tender - Right upper quadrant and epigastric under the ribs. Negative Lira sign. No pain over McBurney's point. No peritoneal signs.. Negative for: Guarding, Rebound tenderness Back: Nontender, Normal Inspection Extremities: Nontender, No edema. Negative for: Calf Tenderness Skin: Normal color, No rash Neurological: Alert, Oriented x3, Cranial nerves II-XII grossly intact, Normal Strength, Normal Sensation Psychological: Normal affect, Normal Mood Diagnostic/Tx/Re-eval - EKG Initial EKG Interpretation: - - Rate of 82 bpm and normal sinus rhythm. Normal intervals. Normal axis. No ST elevations or depressions appreciated. No T wave abnormalities. - Medical Decision Making Patient presents to the emerge department for pain under her right ribs near the right upper quadrant of the abdomen. Upon arrival to the emergency department vital signs within normal limits. She is not tachycardic. She not hypoxic. She is PERC negative. Will check EKG, chest x-ray and basic lab work. Patient's lab work showed her liver enzymes to be severely elevated. Her D- dimer was 0.01 higher than normal limits. Given the elevated hepatic function panel her symptoms are more likely in the abdomen as opposed to the chest and this is consistent with exam. CT scan of the abdomen/pelvis obtained which did show evidence of cholecystitis. At that time general surgery was consulted and Dr. Huitron came to evaluate the patient at bedside. She did recommend giving Flagyl and ciprofloxacin as she has a penicillin allergy and could not take Zosyn. Patient's pain being controlled with hydromorphone. The initial GI cocktail did not give her any relief. Patient made aware of all findings. She is agreeable to staying in the hospital at this time for further evaluation and management. She otherwise has been stable throughout ED stay. ED Disposition - Plan for ED Patient: Disposition: Acute Care [facility] Diagnosis: Acute cholecystitis, Transaminitis, Abdominal pain
[2019-12-24 15:10] LABS: Absolute Lymphocyte Count 1.87 X10^3/uL (0.83-4.51); Absolute Neutrophil Count 3.8 X10^3/uL (2.0-7.7); Basophil# 0.03 X10^3/uL; Basophil% 0.5 % (0-1); Eosinophil# 0.08 X10^3/uL; Eosinophils% 1.3 % (0-5); Hemoglobin 14.3 g/dL (12.0-15.0); Lymphocyte # 1.87 X10^3/ul (4.0); Lymphocyte % 30.3 % (19-41); Mean Corpuscular Hgb 31.6 pg (27.0-32.0); Mean Corpuscular Volume 92.9 fL (81-99); Mean Platelet Vol. 10.1 fl (6.2-12.0); Monocyte# 0.37 X10^3/uL; NRBC Flagged by Analyzer 0 % (0-5); Neutrophil # 3.81 X10^3/uL (2.7-7.7); Neutrophil % 61.7 % (47-70); Platelet Count 226 K/mm3 (150-450); RBC Distribution Width CV 12.6 % (11.6-14.6); RBC Distribution Width SD 43.3 fl (35.1-43.9); Red Blood Count 4.52 M/mm3 (4.2-5.4); White Blood Count 6.2 K/mm3 (4.4-11.0)
[2019-12-24] MEDS: Mag Hydrox/Al Hydrox/Simeth 30 ML UDC PO (15:24)
[2019-12-24 15:29] LABS: AST(SGOT) 475 U/L (15-37); Alanine Aminotransfer ALT/SGPT 942 U/L (13-56); Albumin, Serum 4.1 g/dL (3.2-5.0); Alkaline Phosphatase 143 U/L (45-117); Anion Gap 4 (5-15); BUN 9 mg/dL (7-18); BUN/Creat Ratio 11.6 RATIO (10-20); Bilirubin, Direct 0.54 mg/dL (0.00-0.30); Chloride 112 mmol/L (98-107); Creatinine, Serum 0.78 mg/dL (0.55-1.02); EST Glomerular Filtration Rate 89 mL/min (>60); Est Glom Filt Rate - Afr Amer 108 mL/min (>60); Estimated Creatinine Clearance 93.34 ml/min; Globulin 3.8 g/dL (2.2-4.2); Glucose 82 mg/dL (74-106); Lipase 190 U/L (73-393); Potassium 3.4 mmol/L (3.5-5.1); Protein, Total 7.9 g/dL (6.4-8.2); Sodium Level 143 mmol/L (136-145)
[2019-12-24 15:51] LABS: Bacteria 0 SEEN /hpf (None Seen); Color, Urine Yellow (Yellow); Glucose, Dipstick Normal (Normal); Ketone-Dipstick 5 mg/dl (Negative); Leukocyte Esterase-Dipstick 25 /ul (Negative); Mucous, Urine 0 SEEN /hpf (<or=2+); Nitrite-Dipstick Negative (Negative); Occult Blood-Urine 25 /ul (Negative); Protein-Dipstick 30 mg/dl (Negative); Urine Bilirubin Dipstick Negative (Negative); Urine Clarity Clear (Clear); Urine Urobilinogen 1 mg/dl (Normal); Urine pH 6.5 (5.0 - 8.0)
[2019-12-24 15:53] LABS: Internal QC Validated? YES +Cl - CLEAR BKGD; Pregnancy, Urine Negative Negative
[2019-12-24 15:57] LABS: Red Blood Cells-Urine 0-5 SEEN /hpf (0-5); Squamous Epithelial Cells - UA 0-5 SEEN /hpf (5-10); White Blood Cells 0-5 SEEN /hpf (0-5)
--- NOTE | 2019-12-24 16:08 | CT_ITS ---
STUDY: CT ABDOMEN AND PELVIS WITH CONTRAST REASON FOR EXAM: Female, 34 years old. RUQ PAIN, ELEVATED LIVER ENZYMES, CP WITH INSPIRATION RADIATION DOSAGE (If Supplied By Facility): CTDIvol = ( 15.97 ) mGy, DLP = ( 775.54 ) mGycm TECHNIQUE: Transaxial images were obtained from the dome of the diaphragm to the symphysis pubis without oral contrast. IV 100mL Isovue-300 was administered. Sagittal and coronal images were reconstructed. Individualized dose optimization techniques were used for this CT. COMPARISON: None. FINDINGS: The visualized lung bases are unremarkable. The visualized portions of the heart are within normal limits. Normal liver. Multiple gallstones are noted along with gallbladder wall thickening, as well as intra and extrahepatic biliary dilatation. The extrahepatic common bile duct measures 7.5 mm findings are concerning for cholecystitis. Surgical consultation recommended Normal spleen. Normal pancreas. Normal bilateral adrenal glands. Normal right kidney. Normal left kidney. Normal visualized stomach. Normal small intestine. Normal colon. The appendix is visualized and appears normal. Appendix best seen on coronal recon images 56-62 Normal abdominal aorta. Normal inferior vena cava. Normal retroperitoneum. Normal urinary bladder. Normal visualized uterus. There is a dilated vessel along left side of the uterus suggesting pelvic congestion. No suspicious cystic mass or free fluid Normal abdominal wall. Normal osseous structures. CT/Abdomen/Pelvis W IV Cont ONLY IMPRESSION: Multiple gallstones are noted along with gallbladder wall thickening and pericholecystic fluid along with mild intra and extra hepatic biliary dilatation. Findings are concerning for cholecystitis, surgical consultation recommended No free intraperitoneal fluid, air, or suspicious adenopathy Dilated serpiginous vessel in the left of the uterus suggests pelvic congestion Electronically Signed: Husam Hwang MD at 16:58 EDT , Service support ,
[2019-12-24 17:07] VITALS: BP 98/78; PULSE 82; RESP 20; O2SAT 99
--- NOTE | 2019-12-24 18:12 | NURSING ---
MED SURG ACUTE CHOLECYSTITIS ROBOTHAM
[2019-12-24] MEDS: HYDROmorphone 0.5 MG/0.5 ML SYRINGE IV ×2 (18:14→20:56)
[2019-12-24 18:27] VITALS: BP 113/77; PULSE 73; RESP 17; TEMP 36.1; O2SAT 100
--- NOTE | 2019-12-24 18:49 | PCM.HP.STD ---
History of Present Illness Date of Admission: 12/24/19 The patient is a 34 year old F Presented to the ER due to right upper quadrant and epigastric abdominal pain. Patient states that the pain was worse on Monday at 12/06 however when she laid down it did seem to be better so she did not come in pain did continue on Monday as well as today however today she rates her pain 5/?6/10. Patient denies any nausea/vomiting/fever/chills denies any symptoms of Covid such as cough or fever. Patient states she had has had several similar episodes over the past couple months but did not last this long. Patient initially thought it was her reflux that she was not taking omeprazole consistently every day. Patient has been taking her omeprazole 20 mg once a day for 1 month. Patient was able to eat lunch today however did not really eat on Monday or Monday for lunch today she was able to have [employer] and not shows Scott Venancio.Patient had a CT abdomen pelvis did show gallstones as well as dilated common bile duct and intrahepatic ducts. Patient's LFTs were Elevated AST/ALT/alk phos, normal total bili at 0.9 & 0.5 direct bilirubin. Patient's white blood count was 11.2. Past Medical History Medical History: Medical History (Last Updated 01/06/18 @ 19:[address] Nasreen Goldman, ) Anxiety F41.9 Depression F32.9 Allergies Penicillins Adverse Reaction (Verified 12/24/19 13:26) Hives Sulfa (Sulfonamide Antibiotics) Adverse Reaction (Verified 12/24/19 13:26) Hives Home Medications: Ambulatory Orders Medication Instructions Recorded Albuterol IH (ProAir) [Proair Hfa 1 - 2 puff INHALATION Q4H PRN PRN 12/24/19 (SP)Vent Pts] MedroxyPROGESTERone [Depo-Provera] 150 mg IM [id number] 12/24/19 Omeprazole [Prilosec] 20 mg PO DAILY 12/24/19 Surgical History: Surgical History (Last Updated 01/06/18 @ 19:[address] 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 Denies: Diarrhea VTE Information - Inpt Only VTE Present on Admission: Yes VTE Mechan Device Prophylaxis: SCD's Patient Problems: Active and Suspected Problems (Last Updated 01/06/18 @ 19:[address] Nasreen Golmdan, DO) Acute cholecystitis (Acute) Transaminitis (Acute) Abdominal pain (Acute) - Physical Exam Vitals/I&O's: Vital Signs Temp Pulse Resp BP Pulse Ox 96.9 F L 73 17 113/77 100 12/24/19 18:27 12/24/19 18:27 12/24/19 18:27 12/24/19 18:27 12/24/19 18:27 Oxygen Delivery Method Room Air Weight: 171 lb 4.787 oz Body Mass Index (BMI) 27.6 General: Alert, Oriented x3, Cooperative, No apparent distress HEENT: Atraumatic Lungs: Normal air movement Cardiovascular: Regular rate Abdomen: Soft, Non-Distended, Tender - Epigastric and right upper quadrant, no peritoneal signs Extremities: No clubbing, No cyanosis, No edema Neurological: Cranial nerves II-XII grossly intact Psych/Mental Status: Normal Affect Laboratory Results 12/24/19 15:00: WBC 6.2, RBC 4.52, Hgb 14.3, Hct 42.0, MCV 92.9, MCH 31.6, MCHC 34.0, RDW Std Deviation 43.3, RDW Coeff of [place] 12.6, Plt Count 226, MPV 10.1, Immature Gran % (Auto) 0.200, Neut % (Auto) 61.7, Lymph % (Auto) 30.3, [place] % (Auto) 6.0, Eos % (Auto) 1.3, Baso % (Auto) 0.5, Absolute Neuts (auto) 3.8, Absolute Lymphs (auto) 1.87, Nucleated RBC % 0 12/24/19 15:00: Sodium 143, Potassium 3.4 L, Chloride 112 H, Carbon Dioxide 27.0, Anion Gap 4 L, BUN 9, Creatinine 0.78, Estim Creat Clear Calc 93.34, Est GFR (MDRD) Af Amer 108, Est GFR (MDRD) Non-Af 89, BUN/Creatinine Ratio 11.6, Glucose 82, Calcium 9.0, Total Bilirubin 0.90, Direct Bilirubin 0.54 H, AST 475 H, ALT 942 H, Alkaline Phosphatase 143 H, Troponin I < 0.015, Total Protein 7.9, Albumin 4.1, Globulin 3.8, Lipase 190 12/24/19 15:00: D-Dimer Quant (PE/DVT) 0.50 H 12/24/19 15:30: Urine Color Yellow, Urine Clarity Clear, Urine pH 6.5, Ur Specific [place] 1.020, Urine Protein 30 H, Urine Glucose (UA) Normal, Urine Ketones 5 H, Urine Occult Blood 25 H, Urine Nitrite Negative, Urine Bilirubin Negative, Urine Urobilinogen 1 H, Ur Leukocyte Esterase 25 H, Urine RBC 0-5 SEEN, Urine WBC 0-5 SEEN, Ur Squamous Epith Cells 0-5 SEEN, Urine Bacteria 0 SEEN, Urine Mucus 0 SEEN, Urine Test Negative Assessment/Plan All Active Problems (Last Updated 01/06/18 @ 19:[address] Nasreen Goldman, DO) Pyelonephritis affecting (Acute) 41 weeks gestation of (Acute) Acute cholecystitis (Acute) Transaminitis (Acute) Abdominal pain (Acute) 34-year-old female with acute cholecystitis, elevated LFTs 1. Reviewed the anatomy with the patient and discussed the procedure: laparoscopic cholecystectomy with cholangiograms, possible open. Review risks including but not limited to bleeding, infection, hernia, bile leak, retained gallstones requiring another procedure ERCP- Endoscopic Retrograde Cholangiopancreatography, injury to another organ (bile ducts, common bile duct, small bowel, etc.)May require transfer to tertiary care facility and conversion to an open procedure. All questions were answered. Nica Huitron M.D. Pager: [phone] [facility] [address] [place] [address], [facility], [address] [place] [address] Office: [phone] Inpatient E&M: [id number] Init Hosp L2
[2019-12-24 18:56] VITALS: BMI 26.5
[2019-12-24 19:03] VITALS: BMI 26.5
[2019-12-24 19:21] VITALS: BP 112/80; PULSE 80; RESP 16; TEMP 36.8; O2SAT 98
[2019-12-24] MEDS: metroNIDAZOLE 500 MG/100 ML BAG 100 MG IV (20:08)
[2019-12-24] MEDS: Ciprofloxacin 400 MG/200 ML BAG 200 MG IV (23:10)
[2019-12-25] VITALS (13 sets, daily range): BP systolic 92–112; BP diastolic 58–78; PULSE 75–100; RESP 12–22; TEMP 36.3–37; O2SAT 94–100; BMI 26.5
[2019-12-25] MEDS: HYDROmorphone 0.5 MG/0.5 ML SYRINGE IV ×4 (02:56→18:59)
[2019-12-25 05:49] LABS: Absolute Lymphocyte Count 1.11 X10^3/uL (0.83-4.51); Absolute Neutrophil Count 3.8 X10^3/uL (2.0-7.7); Basophil# 0.02 X10^3/uL; Basophil% 0.4 % (0-1); Eosinophil# 0.03 X10^3/uL; Eosinophils% 0.6 % (0-5); Hematocrit 38.6 % (37-47); Hemoglobin 12.8 g/dL (12.0-15.0); Lymphocyte # 1.11 X10^3/ul (4.0); Mean Corp Hgb Conc 33.2 g/dL (32-36); Mean Corpuscular Hgb 30.8 pg (27.0-32.0); Mean Platelet Vol. 9.8 fl (6.2-12.0); Monocyte# 0.32 X10^3/uL; Monocyte% 6.1 % (0-10); NRBC Flagged by Analyzer 0 % (0-5); Neutrophil % 71.9 % (47-70); Platelet Count 172 K/mm3 (150-450); RBC Distribution Width CV 12.5 % (11.6-14.6); Red Blood Count 4.15 M/mm3 (4.2-5.4); White Blood Count 5.3 K/mm3 (4.4-11.0)
[2019-12-25 06:22] LABS: AST(SGOT) 290 U/L (15-37); Alanine Aminotransfer ALT/SGPT 755 U/L (13-56); Albumin, Serum 3.5 g/dL (3.2-5.0); Alkaline Phosphatase 120 U/L (45-117); Anion Gap 5 (5-15); BUN 7 mg/dL (7-18); BUN/Creat Ratio 11.3 RATIO (10-20); Bilirubin, Direct 1.03 mg/dL (0.00-0.30); Calcium,Total 8.4 mg/dL (8.5-10.1); Chloride 109 mmol/L (98-107); Creatinine, Serum 0.62 mg/dL (0.55-1.02); EST Glomerular Filtration Rate 116 mL/min (>60); Est Glom Filt Rate - Afr Amer 140 mL/min (>60); Estimated Creatinine Clearance 117.43 ml/min; Globulin 3.2 g/dL (2.2-4.2); Glucose 93 mg/dL (74-106); Potassium 3.5 mmol/L (3.5-5.1); Protein, Total 6.7 g/dL (6.4-8.2); Sodium Level 139 mmol/L (136-145)
[2019-12-25] MEDS: metroNIDAZOLE 500 MG/100 ML BAG 100 MG IV ×3 (06:45→21:35)
--- NOTE | 2019-12-25 07:20 | PCM.PN.SRG ---
Patient Problems: Active and Suspected Problems (Last Updated 01/06/18 @ 19:[address] 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 but has improved, controlled with pain meds denies nausea and vomiting - Physical Exam Vitals/I&O's: Vital Signs Temp Pulse Resp BP Pulse Ox 98.1 F 75 18 93/58 L 94 12/25/19 01:48 12/25/19 01:48 12/25/19 01:48 12/25/19 01:48 12/25/19 01:48 Oxygen Delivery Method Room Air Weight: 164 lb 6.4 oz Body Mass Index (BMI) 26.5 Intake and Output for Last 24 Hours 12/23/19 12/24/19 12/25/19 23:59 23:59 23:59 Intake Total 210 / 210 200 / 200 Balance 210 / 210 200 / 200 General: Alert, Oriented x3, Cooperative, No apparent distress HEENT: Atraumatic Neck: Supple Lungs: Normal air movement Cardiovascular: Regular rate Abdomen: Soft, Non-Distended, Tender - Right upper quadrant and epigastric, no peritoneal signs Extremities: No clubbing, No cyanosis, No edema Neurological: Cranial nerves II-XII grossly intact Psych/Mental Status: Normal Affect Laboratory Results 12/24/19 15:00: WBC 6.2, RBC 4.52, Hgb 14.3, Hct 42.0, MCV 92.9, MCH 31.6, MCHC 34.0, RDW Std Deviation 43.3, RDW Coeff of [place] 12.6, Plt Count 226, MPV 10.1, Immature Gran % (Auto) 0.200, Neut % (Auto) 61.7, Lymph % (Auto) 30.3, [place] % (Auto) 6.0, Eos % (Auto) 1.3, Baso % (Auto) 0.5, Absolute Neuts (auto) 3.8, Absolute Lymphs (auto) 1.87, Nucleated RBC % 0 12/24/19 15:00: Sodium 143, Potassium 3.4 L, Chloride 112 H, Carbon Dioxide 27.0, Anion Gap 4 L, BUN 9, Creatinine 0.78, Estim Creat Clear Calc 93.34, Est GFR (MDRD) Af Amer 108, Est GFR (MDRD) Non-Af 89, BUN/Creatinine Ratio 11.6, Glucose 82, Calcium 9.0, Total Bilirubin 0.90, Direct Bilirubin 0.54 H, AST 475 H, ALT 942 H, Alkaline Phosphatase 143 H, Troponin I < 0.015, Total Protein 7.9, Albumin 4.1, Globulin 3.8, Lipase 190 12/24/19 15:00: D-Dimer Quant (PE/DVT) 0.50 H 12/24/19 15:30: Urine Color Yellow, Urine Clarity Clear, Urine pH 6.5, Ur Specific [place] 1.020, Urine Protein 30 H, Urine Glucose (UA) Normal, Urine Ketones 5 H, Urine Occult Blood 25 H, Urine Nitrite Negative, Urine Bilirubin Negative, Urine Urobilinogen 1 H, Ur Leukocyte Esterase 25 H, Urine RBC 0-5 SEEN, Urine WBC 0-5 SEEN, Ur Squamous Epith Cells 0-5 SEEN, Urine Bacteria 0 SEEN, Urine Mucus 0 SEEN, Urine Test Negative 12/25/19 05:44: WBC 5.3, RBC 4.15 L, Hgb 12.8, Hct 38.6, MCV 93.0, MCH 30.8, MCHC 33.2, RDW Std Deviation 43.0, RDW Coeff of [place] 12.5, Plt Count 172, MPV 9.8, Immature Gran % (Auto) 0.000, Neut % (Auto) 71.9 H, Lymph % (Auto) 21.0, [place] % (Auto) 6.1, Eos % (Auto) 0.6, Baso % (Auto) 0.4, Absolute Neuts (auto) 3.8, Absolute Lymphs (auto) 1.11, Nucleated RBC % 0 12/25/19 05:44: Sodium 139, Potassium 3.5, Chloride 109 H, Carbon Dioxide 25.0, Anion Gap 5, BUN 7, Creatinine 0.62, Estim Creat Clear Calc 117.43, Est GFR (MDRD) Af Amer 140, Est GFR (MDRD) Non-Af 116, BUN/Creatinine Ratio 11.3, Glucose 93, Calcium 8.4 L, Total Bilirubin 1.80 H, Direct Bilirubin 1.03 H, AST 290 H, ALT 755 H, Alkaline Phosphatase 120 H, Total Protein 6.7, Albumin 3.5, Globulin 3.2 Current Medications Hydromorphone HCl (Hydromorphone 0.5 Mg/0.5 Ml Syringe) 0.5 - 1 mg IV Q2H PRN PRN PRN Reason: Pain Score 1-10 Last Admin: 12/25/19 06:45 Dose: 1 mg Documented by: Ciprofloxacin (Cipro) 400 mg in 200 mls @ 200 mls/hr IV Q12 FE Last Infusion: 12/25/19 00:12 Dose: Infused Documented by: Metronidazole (Flagyl) 500 mg in 100 mls @ 100 mls/hr IV Q8 FE Last Admin: 12/25/19 06:45 Dose: 100 mls/hr Documented by: Pantoprazole Sodium 40 mg/ (Sodium Chloride) 110 mls @ 330 mls/hr IV Q24 FE Last Infusion: 12/24/19 22:50 Dose: Infused Documented by: Ondansetron HCl (Ondansetron 4 Mg/2 Ml Vial) 4 mg IV Q8H PRN PRN PRN Reason: NAUSEA Medical Necessity - Tobacco Use Smoking Status: Never smoker Tobacco Use: Non-smoker Assessment/Plan All Active Problems (Last Updated 01/06/18 @ 19:[address] Nasreen Goldman, DO) Pyelonephritis affecting (Acute) 41 weeks gestation of (Acute) Acute cholecystitis (Acute) Transaminitis (Acute) Abdominal pain (Acute) 34-year-old female with acute cholecystitis, elevated LFTs 1. Patient have a slight increase in her total bilirubin today however the other ones mostly did decrease we will plan for a laparoscopic cholecystectomy today patient is aware that if the cholangiograms are unable to pass into the duodenum she could possibly need an ERCP as well. Patient no further questions this time. We discussed the current risks associated with COVID-19. While it is understood that there is a community spread of COVID-19, the risk of jenni COVID-19 while at [facility] ([facility]) is very low; however, the risk cannot be completely mitigated because of the community spread of the disease. We discussed in detail the risk of exposure to and/or potential harm posed by the COVID-19 virus with having a surgery/procedure at this time versus the risk of delaying the surgery/procedure. It is not possible to know either the risk of delaying the surgery or procedure or chance of getting an infection with perfect accuracy, but a joint decision was made to proceed at this time with the scheduled surgery/procedure as indicated on the consent form. Patient was notified that we will need to comply with any screening or testing [facility] wishes to perform or that surgery may be delayed for any positive results. Nica Huitron M.D. Pager: [phone] [facility] [address] [place] [address] [address] [place] [address] Office: [phone]
[2019-12-25] MEDS: Ciprofloxacin 400 MG/200 ML BAG 200 MG IV ×2 (09:58→22:38)
--- NOTE | 2019-12-25 10:45 | GALL_PTH ---
PATIENT: ANDREAS REECE LOC: MS3 U#:[id number] AGE/SX: 34/F ROOM: MS316 RE12/26/[address]: Dr. Nica Huitron MD : 1985 BED: 1 DIS: 12/26/2019 SPEC #: [id number] RECD: 12/25/19 14:38 STATUS: YELENA REKirk #: [id number] YADIEL: 12/25/19 10:[address]: Nica Huitron DEPT: SURGICAL PATHOLOGY RECD BY: Donnie Osman ENTERED: 12/26/19 07:06 SP TYPE: GELACIO MULLINS DR: No Primary Care Phys Tissues: Gallbladder, NOS Procedures: Surgery Specimen Level III HEADER OPERATION: Laparoscopic cholecystectomy with IOC PRE-OP DIAGNOSIS: Acute cholecystitis TISSUE SUBMITTED: Gallbladder MICROSCOPIC DIAGNOSIS Gallbladder, cholecystectomy: Chronic cholecystitis, cholelithiasis and cholesterolosis. A pericystic lymph node with reactive changes. SJ:kimi 12/27/19 MICROSCOPIC DESCRIPTION Slides are reviewed. GROSS DESCRIPTION Received is one container labeled with the patient's name and designated gallbladder. The specimen consists of a previously opened gallbladder measuring 10 cm in length and up to 2.5 cm in diameter. The external surface is pink-mascorro, smooth and glistening for the most part. Focally it is granular, hemorrhagic and contains cautery artifact. The gallbladder contains green-yellow mucoid bile. Present in the gallbladder and also in the container are multiple irregular to mulberry orange-brow stones measuring in aggregate 3.5 x 3 x 1 cm and 0.3 to 1.5 cm in greatest dimension. The mucosa also shows several yellowish streaks consistent with cholesterolosis. The gallbladder wall measures up to 0.3 cm in thickness. Present close to cystic duct is an ovoid piece of nodule, a possible lymph node, measuring 1 cm in greatest dimension. Doctor Of Osteopathy sections from the gallbladder and the cystic duct including the entire possible lymph node are submitted in one cassette. / BHAKTI:kimi 12/26/19 TC:3 CPT: 95232
--- NOTE | 2019-12-25 11:15 | RAD_ITS ---
CLINICAL HISTORY: Female, 34 years old. Cholecystectomy PROCEDURE: CHOLANGIOGRAM - intraoperative CONSENT: Informed consent obtained SEDATION: General FLUOROSCOPY TIME (if supplied): (21) seconds Placement of the catheter and the procedure were performed by: Dr. Huitron Fluoroscopy was provided by Brianna Asencio, who was present in the room time of the procedure. TECHNIQUE: (All elements of maximal sterile barrier technique followed, including US elements as applicable) After removal of the gallbladder, the cystic duct remnant was cannulized, and contrast injected into the biliary tree in a retrograde manner. The biliary radicles within the liver as well as the extrahepatic common bile duct show mild dilatation though there is no filling defect to suspect a retained stone. Additionally, there is no documented flow of contrast within the duodenum. No extravasation of contrast noted RAD/Cholangiogram/ O R,Initial IMPRESSION: No filling defects are noted within a mildly dilated biliary tree, additionally, there is no documentation of flow of contrast into the duodenum. There could be a stricture or stone present in the distal common bile duct preventing flow of contrast into the duodenum. No extravasation of contrast No demonstrated stricture or extrinsic impingement noted Electronically Signed: Husam Hwang MD at 14:09 EDT , Service support ,
[2019-12-25] MEDS: Bupivacaine Mpf 0.5% 30 ML VIAL (13:00)
--- NOTE | 2019-12-25 13:02 | OP.PCM_ITS ---
Report of Operation Date of Procedure: 12/25/19 Pre-Operative Diagnosis: Acute cholecystitis Post-Operative Diagnosis: same Surgery/Procedure Performed:: Laparoscopic cholecystectomy with cholangiograms Type of Anesthesia:: General Anesthesiologist: Juan Hall Special Medications: Cipro 400 mg IV x1 Specimen's removed: Gallbladder Estimated Blood Loss (mL): 10 cc Fluids Replaced: 800 cc Description of Procedure: Indications this is a 34 year-old male who developed abdominal pain/nausea /vomiting and on workup was found to have acute cholecystitis, cholelithiasis, with dilated common bile duct, elevated LFTs. Laparoscopic cholecystectomy was elected. Description procedure: The patient was placed on operating table in supine position. General Anesthesia was induced. A timeout was completed verifying correct patient, procedure, site, position and special equipment prior to beg inning procedure. The abdomen was prepped and draped in usual sterile fashion. An incision was made in the natural skin line below the umbilicus. The fascia was elevated and incised. The peritoneum was elevated and incised. Entry into the peritoneum was confirmed visually and no bowel was noted in the vicinity of the incision. Chan trocar was placed. The abdomen was insufflated with carbon dioxide to a pressure of 12-15 mmHg. Patient tolerated insufflation well. The laparoscope was then inserted and abdomen inspected. No injuries from initial trocar placement were noted. Additional trochars were then inserted in the following locations 5 mm trocar in the epigastrium and 2 more 5 mm trochars along the right costal margin. The abdomen was inspected no abnormalities were found. The table is placed in reverse Trendelenburg position with the right side up. The adhesions between the gallbladder and omentum were lysed sharply. The dome of the gallbladder was grasped with atraumatic grasper passed through the lateral port and retracted over the dome of the liver. Infundibulum was then grasped with atraumatic grasper through the midclavicular port and retracted to the right lower quadrant. This maneuver exposed Calot's triangle. The peritoneum overlying the gallbladder infundibulum was then incised and cystic duct and artery identified and circumferentially dissected. Ranfac catheter was used for cholangiograms. A cholangiogram showed a distended cystic duct with no flow into the duodenum but good flow into the right and left hepatic ducts. The cystic duct and artery were then doubly clipped and divided close to the gallbladder. The gallbladder then dissected from its peritoneal attachments by electrocautery. Hemostasis was checked and the gallbladder and contained stones were removed using the endoscopic retrieval bag through the umbilical port. The gallbladder is passed off table as specimen. The gallbladder fossa was copiously irrigated with saline and hemostasis obtained. There is no evidence of bleeding from the gallbladder fossa or cystic artery leakage of bile from the cystic duct stump. Secondary trochars removed under direct vision. No bleeding was noted the trocar sites. The laparoscope was withdrawn and umbilical trocar removed. The abdomen was allowed to collapse. The fascia of the 12 mm trocar was closed with a [id number] 0 Vicryl suture. The skin was closed with sutures of 4-0 Monocryl and Steri-Strips. The patient was extubated. The patient tolerated procedure well and was taken to the postanesthesia care u nit in stable condition. - Complications none
[2019-12-25] MEDS: Lactated Ringers 1,000 ML 100 ML IV (14:25)
[2019-12-25] MEDS: Ondansetron 4 MG/2 ML Vial IV (15:42)
[2019-12-26] VITALS (10 sets, daily range): BP systolic 98–111; BP diastolic 60–78; PULSE 67–92; RESP 16–18; TEMP 36.8–37.2; O2SAT 97–100; BMI 26.5
[2019-12-26] MEDS: HYDROmorphone 0.5 MG/0.5 ML SYRINGE IV ×2 (02:16→08:03)
[2019-12-26] MEDS: Lactated Ringers 1,000 ML 100 ML IV ×2 (02:17→12:30)
[2019-12-26] MEDS: metroNIDAZOLE 500 MG/100 ML BAG 100 MG IV ×2 (06:03→13:52)
[2019-12-26 06:30] LABS: Absolute Lymphocyte Count 1.23 X10^3/uL (0.83-4.51); Absolute Neutrophil Count 3.8 X10^3/uL (2.0-7.7); Basophil# 0.01 X10^3/uL; Basophil% 0.2 % (0-1); Eosinophil# 0.04 X10^3/uL; Eosinophils% 0.7 % (0-5); Hematocrit 35.3 % (37-47); Hemoglobin 11.6 g/dL (12.0-15.0); Lymphocyte # 1.23 X10^3/ul (4.0); Lymphocyte % 22.4 % (19-41); Mean Corp Hgb Conc 32.9 g/dL (32-36); Mean Corpuscular Hgb 31.4 pg (27.0-32.0); Mean Corpuscular Volume 95.7 fL (81-99); Mean Platelet Vol. 10.2 fl (6.2-12.0); Monocyte# 0.44 X10^3/uL; NRBC Flagged by Analyzer 0 % (0-5); Neutrophil # 3.75 X10^3/uL (2.7-7.7); Neutrophil % 68.5 % (47-70); Platelet Count 154 K/mm3 (150-450); RBC Distribution Width CV 12.7 % (11.6-14.6); RBC Distribution Width SD 44.2 fl (35.1-43.9); Red Blood Count 3.69 M/mm3 (4.2-5.4); White Blood Count 5.5 K/mm3 (4.4-11.0)
[2019-12-26 06:56] LABS: AST(SGOT) 278 U/L (15-37); Alanine Aminotransfer ALT/SGPT 654 U/L (13-56); Alkaline Phosphatase 120 U/L (45-117); Anion Gap 5 (5-15); BUN 5 mg/dL (7-18); BUN/Creat Ratio 8.1 RATIO (10-20); Bilirubin, Direct 2.35 mg/dL (0.00-0.30); Calcium,Total 8.2 mg/dL (8.5-10.1); Chloride 113 mmol/L (98-107); Creatinine, Serum 0.62 mg/dL (0.55-1.02); EST Glomerular Filtration Rate 116 mL/min (>60); Est Glom Filt Rate - Afr Amer 141 mL/min (>60); Estimated Creatinine Clearance 117.43 ml/min; Globulin 2.8 g/dL (2.2-4.2); Glucose 86 mg/dL (74-106); Potassium 3.5 mmol/L (3.5-5.1); Protein, Total 5.8 g/dL (6.4-8.2); Sodium Level 142 mmol/L (136-145)
--- NOTE | 2019-12-26 07:47 | PN.SURG_ITS ---
Patient Problems: Active and Suspected Problems (Last Updated 01/06/18 @ 19:[address] Nasreen Goldman, DO) Acute cholecystitis (Acute) Transaminitis (Acute) Abdominal pain (Acute) Subjective: Patient reports no nausea or vomiting overnight - Physical Exam Vitals/I&O's: Vital Signs Temp Pulse Resp BP Pulse Ox 98.7 F 73 16 98/60 99 12/26/19 02:00 12/26/19 02:00 12/26/19 02:00 12/26/19 02:00 12/26/19 02:00 Oxygen Delivery Method Room Air Weight: 164 lb 6.4 oz Body Mass Index (BMI) 26.5 Intake and Output for Last 24 Hours 12/24/19 12/25/19 12/26/19 23:59 23:59 23:59 Intake Total 210 / 210 2748.33 / 2748.33 743.33 / 743.33 Balance 210 / 210 2748.33 / 2748.33 743.33 / 743.33 Abdomen: Soft, Non Tender, Non-Distended Microbiology Past 72 Hours 12/25/19 08:35 Mucosa - Nose - Final Laboratory Results 12/26/19 05:50: WBC 5.5, RBC 3.69 L, Hgb 11.6 L, Hct 35.3 L, MCV 95.7, MCH 31.4, MCHC 32.9, RDW Std Deviation 44.2 H, RDW Coeff of Anna Marie 12.7, Plt Count 154, MPV 10.2, Immature Gran % (Auto) 0.200, Neut % (Auto) 68.5, Lymph % (Auto) 22.4, Rankin % (Auto) 8.0, Eos % (Auto) 0.7, Baso % (Auto) 0.2, Absolute Neuts (auto) 3.8, Absolute Lymphs (auto) 1.23, Nucleated RBC % 0 12/26/19 05:50: Sodium 142, Potassium 3.5, Chloride 113 H, Carbon Dioxide 24.0, Anion Gap 5, BUN 5 L, Creatinine 0.62, Estim Creat Clear Calc 117.43, Est GFR (MDRD) Af Amer 141, Est GFR (MDRD) Non-Af 116, BUN/Creatinine Ratio 8.1 L, Glucose 86, Calcium 8.2 L, Total Bilirubin 3.30 H, Direct Bilirubin 2.35 H, AST 278 H, ALT 654 H, Alkaline Phosphatase 120 H, Total Protein 5.8 L, Albumin 3.0 L , Globulin 2.8 Current Medications Hydromorphone HCl (Hydromorphone 0.5 Mg/0.5 Ml Syringe) 0.5 - 1 mg IV Q2H PRN PRN PRN Reason: Pain Score 1-10 Last Admin: 12/26/19 02:16 Dose: 0.5 mg Documented by: Ciprofloxacin (Cipro) 400 mg in 200 mls @ 200 mls/hr IV Q12 [facility] Last Infusion: 12/25/19 23:38 Dose: Infused Documented by: Metronidazole (Flagyl) 500 mg in 100 mls @ 100 mls/hr IV Q8 [facility] Last Infusion: 12/26/19 07:05 Dose: Infused Documented by: Pantoprazole Sodium 40 mg/ (Sodium Chloride) 110 mls @ 330 mls/hr IV Q24 [facility] Last Infusion: 12/25/19 10:00 Dose: Infused Documented by: Lactated Ringer's () 1,000 mls @ 100 mls/hr IV .Q10H [facility] Last Infusion: 12/26/19 07:16 Dose: 100 mls/hr Documented by: Ondansetron HCl (Ondansetron 4 Mg/2 Ml Vial) 4 mg IV Q8H PRN PRN PRN Reason: NAUSEA Last Admin: 12/25/19 15:42 Dose: 4 mg Documented by: Medical Necessity - Tobacco Use Smoking Status: Never smoker Tobacco Use: Non-smoker Assessment/Plan All Active Problems (Last Updated 01/06/18 @ 19:[address] Nasreen Goldman, DO) Pyelonephritis affecting (Acute) 41 weeks gestation of (Acute) Acute cholecystitis (Acute) Transaminitis (Acute) Abdominal pain (Acute) 34-year-old female with choledocholithiasis status post laparoscopic cholecystectomy 1. The patient had obstruction of the bile duct on cholangiogram. Her LFTs have increased since yesterday. I recommended ERCP. I discussed ERCP with the patient in detail. I discussed the risks including but not limited to bleeding, infection, perforation of the bile duct or bowel, pancreatitis. The patient understands the risks and is well to proceed. Cesar Gutierrez MD Pager: [facility] [address] [place] [address], [address] [place] [address] Office:
--- NOTE | 2019-12-26 09:05 | PCM.PN.SRG ---
Patient Problems: Active and Suspected Problems (Last Updated 01/06/18 @ 19:[address] Nasreen Goldman, DO) Acute cholecystitis (Acute) Transaminitis (Acute) Abdominal pain (Acute) Subjective: LFTs are increased, ERCP planned for this morning. Patient still does have some right upper quadrant tenderness and some mild soreness at incisions - Physical Exam Vitals/I&O's: Vital Signs Temp Pulse Resp BP Pulse Ox 98.3 F 69 18 105/69 99 12/26/19 07:57 12/26/19 07:57 12/26/19 07:57 12/26/19 07:57 12/26/19 07:57 Oxygen Delivery Method Room Air Weight: 164 lb 6.4 oz Body Mass Index (BMI) 26.5 Intake and Output for Last 24 Hours 12/24/19 12/25/19 12/26/19 23:59 23:59 23:59 Intake Total 210 / 210 2748.33 / 2748.33 936.66 / 936.66 Balance 210 / 210 2748.33 / 2748.33 936.66 / 936.66 General: Alert, Oriented x3, Cooperative, No apparent distress HEENT: Atraumatic Lungs: Normal air movement Cardiovascular: Regular rate Abdomen: Soft, Non-Distended, Tender - Near incisions and right upper quadrant, incisions clean dry and intact, no peritoneal signs Extremities: No clubbing, No cyanosis, No edema Microbiology Past 72 Hours 12/25/19 08:35 Mucosa - Nose - Final Laboratory Results 12/26/19 05:50: WBC 5.5, RBC 3.69 L, Hgb 11.6 L, Hct 35.3 L, MCV 95.7, MCH 31.4, MCHC 32.9, RDW Std Deviation 44.2 H, RDW Coeff of Anna Marie 12.7, Plt Count 154, MPV 10.2, Immature Gran % (Auto) 0.200, Neut % (Auto) 68.5, Lymph % (Auto) 22.4, Moffat % (Auto) 8.0, Eos % (Auto) 0.7, Baso % (Auto) 0.2, Absolute Neuts (auto) 3.8, Absolute Lymphs (auto) 1.23, Nucleated RBC % 0 12/26/19 05:50: Sodium 142, Potassium 3.5, Chloride 113 H, Carbon Dioxide 24.0, Anion Gap 5, BUN 5 L, Creatinine 0.62, Estim Creat Clear Calc 117.43, Est GFR (MDRD) Af Amer 141, Est GFR (MDRD) Non-Af 116, BUN/Creatinine Ratio 8.1 L, Glucose 86, Calcium 8.2 L, Total Bilirubin 3.30 H, Direct Bilirubin 2.35 H, AST 278 H, ALT 654 H, Alkaline Phosphatase 120 H, Total Protein 5.8 L, Albumin 3.0 L, Globulin 2.8 Current Medications Hydromorphone HCl (Hydromorphone 0.5 Mg/0.5 Ml Syringe) 0.5 - 1 mg IV Q2H PRN PRN PRN Reason: Pain Score 1-10 Last Admin: 12/26/19 08:03 Dose: 0.5 mg Documented by: Ciprofloxacin (Cipro) 400 mg in 200 mls @ 200 mls/hr IV Q12 [facility] Last Infusion: 12/25/19 23:38 Dose: Infused Documented by: Metronidazole (Flagyl) 500 mg in 100 mls @ 100 mls/hr IV Q8 [facility] Last Infusion: 12/26/19 07:05 Dose: Infused Documented by: Pantoprazole Sodium 40 mg/ (Sodium Chloride) 110 mls @ 330 mls/hr IV Q24 [facility] Last Infusion: 12/26/19 08:23 Dose: Infused Documented by: Lactated Ringer's () 1,000 mls @ 100 mls/hr IV .Q10H [facility] Last Infusion: 12/26/19 08:26 Dose: 100 mls/hr Documented by: Ondansetron HCl (Ondansetron 4 Mg/2 Ml Vial) 4 mg IV Q8H PRN PRN PRN Reason: NAUSEA Last Admin: 12/25/19 15:42 Dose: 4 mg Documented by: Medical Necessity - Tobacco Use Smoking Status: Never smoker Tobacco Use: Non-smoker Assessment/Plan All Active Problems (Last Updated 01/06/18 @ 19:[address] Nasreen Goldman, DO) Pyelonephritis affecting (Acute) 41 weeks gestation of (Acute) Acute cholecystitis (Acute) Transaminitis (Acute) Abdominal pain (Acute) 34-year-old female with acute cholecystitis, elevated LFTs status post laparoscopic cholecystectomy 1. Patient is scheduled for an ERCP due to choledocholithiasis seen on cholangiograms and increased LFTs. Scheduled with Dr. Gutierrez later this morning. Nica Huitron M.D. Pager: [phone] [facility] [address] [place] [address] [address] [place] [address] Office: [phone]
[2019-12-26] MEDS: Ciprofloxacin 400 MG/200 ML BAG 200 MG IV (09:50)
--- NOTE | 2019-12-26 11:00 | RAD_ITS ---
STUDY: REASON FOR EXAM: Female, 34 years old. Acute cholecystitis, elevated LFT''s FLUOROSCOPY TIME (if supplied): ( 71.6 seconds ) minutes/seconds. 3 images were obtained. TECHNIQUE: An ERCP was performed by the surgeon. Imaging was submitted. COMPARISON: None. FINDINGS: A small rounded well-defined filling defect is seen in the distal portion of the common bile duct as well as in the proximal common hepatic duct. These may represent tiny air bubbles. RAD/ERCP Biliary Only IMPRESSION: Findings suggestive of 2 tiny air bubbles in the common bile duct Electronically Signed: Ludwig Kim, at 8:06 EDT , Service support ,
--- NOTE | 2019-12-26 12:49 | OP.ERCP_ITS ---
Patient Name: Ghassan Vanegas Procedure Date: 12/26/2019 12:07 PM Date of : 1985 Age: 34 Procedure: ERCP Indications: Bile duct stone(s) Providers: Cesar Gutierrez MD Medicines: General Anesthesia Patient Profile: This is a 34 year old female. Refer to note in patient chart for documentation of history and physical. Complications: No immediate complications. Procedure: Pre-Anesthesia Assessment: - Prior to the procedure, a History and Physical was performed, and patient medications and allergies were reviewed. The patient's tolerance of previous anesthesia was also reviewed. The risks and benefits of the procedure and the sedation options and risks were discussed with the patient. All questions were answered, and informed consent was obtained. Prior Anticoagulants: The patient has taken no previous anticoagulant or antiplatelet agents. After reviewing the risks and benefits, the patient was deemed in satisfactory condition to undergo the procedure. After obtaining informed consent, the scope was passed under direct vision. Throughout the procedure, the patient's blood pressure, pulse, and oxygen saturations were monitored continuously. The duodenoscope was introduced through the mouth, and advanced to the duodenum and used to inject contrast into the bile duct. The ERCP was accomplished without difficulty. The patient tolerated the procedure well. Scope In: 12:30:53 PM Scope Out: 12:38:06 PM Total Procedure Duration Time 0 hours 7 minutes 13 seconds Findings: The major papilla was normal. A 0.035 inch x 260 cm straight Dreamwire was passed into the biliary tree. The sphincterotome was passed over the guidewire and the bile duct was then deeply cannulated. Contrast was injected. I personally interpreted the bile duct images. There was brisk flow of contrast through the ducts. The lower third of the main bile duct contained filling defect(s) thought to be a stone. Biliary sphincterotomy was made with a monofilament sphincterotome using ERBE electrocautery. There was no post-sphincterotomy bleeding. The biliary tree was swept with a 12 mm balloon starting at the bifurcation. A few stones were removed. No stones remained. The endoscope was withdrawn from the patient. Impression: - The major papilla appeared normal. - A filling defect consistent with a stone was seen on the cholangiogram. - Choledocholithiasis was found. Complete removal was accomplished by biliary sphincterotomy and balloon extraction. - A biliary sphincterotomy was performed. - The biliary tree was swept. Recommendation: - [facility]. Procedure Code(s): --- Professional --- 23797, Endoscopic retrograde cholangiopancreatography (ERCP); with removal of calculi/debris from biliary/pancreatic duct(s) 33713, 51, Endoscopic retrograde cholangiopancreatography (ERCP); with sphincterotomy/papillotomy Diagnosis Code(s): --- Professional --- K80.50, Calculus of bile duct without cholangitis or cholecystitis without obstruction R93.2, Abnormal findings on diagnostic imaging of liver and biliary tract CPT copyright 2017 [employer]. All rights reserved. The codes documented in this report are preliminary and upon post splitter review may be revised to meet current compliance requirements. Cesar Gutierrez MD 12/26/2019 12:48:48 PM This report has been signed electronically. Number of Addenda: 0 Note Initiated On: 12/26/2019 12:07 PM
--- NOTE | 2019-12-26 12:49 | OP.CCLET_ITS ---
12/26/2019 No Primary Care Physician Re : ERCP procedure for Ghassan Vanegas Dear Care Physician This procedure was performed on November. My impressions and recommendations are as follows: Impressions : - The major papilla appeared normal. - A filling defect consistent with a stone was seen on the cholangiogram. - Choledocholithiasis was found. Complete removal was accomplished by biliary sphincterotomy and balloon extraction. - A biliary sphincterotomy was performed. - The biliary tree was swept. Recommendations : - [facility] care. My findings are described in the full procedure note, which is enclosed. If I can be of further assistance, please feel free to contact me at Doctor phone number(s): , Work: . Sincerely, Cesar Gutierrez MD 12/26/2019 12:48:48 PM This report has been signed electronically.
--- NOTE | 2019-12-26 14:09 | DCINST_ITS ---
Discharge Diet: Light diet - advance as tolerated Discharge Activity: May Shower Lifting Restrictions: No lifting greater than 20 pounds x 2 weeks then okay to gradually increase Call your doctor if your incision/area has: Continuous Slow Oozing, Sudden Increased Bleeding, Increased Pain/ Swelling, Increased Redness, Foul Smelling Discharge, Swelling at the incision site Call your doctor if you observe: Fever of 101 or Higher Remove Dressing in (days):: 0 - Okay to remove the OpSite today, Steri-Strips will stay on for 7 to 10 days with bending up off and 10 days okay to remove Additional Instructions: Okay to take ibuprofen 400-600 mg PO q6hr PRN along with the Percocet. Avoid Tylenol since there is already Tylenol in the Percocet. Take all pain meds with food. Percocet can cause constipation recommend taking daily stool softener (i.e. Colace/docusate) while taking the pain meds. Recommend starting some MiraLAX In 1 to 2 days if no bowel movement. If still no bowel movement the following day recommend taking magnesium citrate half the bottle and waiting 4-6 hours if still no results take the other half the bottle. Allergies/Adverse Reactions: Allergies Penicillins Adverse Reaction (Verified 12/24/19 13:26) Hives Sulfa (Sulfonamide Antibiotics) Adverse Reaction (Verified 12/24/19 13:26) Hives Medications to take at Discharge Albuterol IH (ProAir) [Proair Hfa (SP)Vent Pts] 1 - 2 puff INHALATION Q4H PRN PRN 12/24/19 MedroxyPROGESTERone [Depo-Provera] 150 mg IM .[id number] 12/24/19 Omeprazole [Prilosec] 20 mg PO DAILY 12/24/19 Oxycodone HCl/Acetaminophen [Percocet 5/325] 1 - 2 tab PO Q6H PRN PRN 4 Days #25 tab 12/25/19 The following prescriptions were given: Oxycodone HCl/Acetaminophen [Percocet 5/325] 1 - 2 tab PO Q6H PRN PRN 4 Days #25 tab PRN Reason: Pain Transmission Status: Received by [facility]/pharmacy #[id number] Primary Care Physician: Care Physician,No Primary [Primary Care Provider] - Test Results: Test results from this visit will be discussed in further detail at your follow- up appointment, if applicable. Please Follow Up With: Nica Huitron MD - At 5:00 on the weekends call [phone] with any concerns When: Call the office for an appointment in 2 weeks [phone] Proposed Discharge Date: 12/26/19
[2019-12-26] MEDS: Docusate Sodium 100 MG Capsule PO (15:04)
[2019-12-26] MEDS: oxyCODONE 5 MG Tablet PO (17:38)
== END 2019-12-26 18:18 | disposition home or self-care (01) | DRG 419 ==
LOC: ED 18:07 → MS3 18:32
PROVIDERS: Surgery; Admitting Provider Surgery; Emergency Provider Emergency Medicine; Visit Provider Surgery
PROC: 0FT44ZZ Resection of Gallbladder, Percutaneous Endoscopic Approach (ICD-10-PCS; CPT 47610; principal; 2019-12-25 10:25)
PROC: 0FC98ZZ Extirpation of Matter from Common Bile Duct, Via Natural or Artificial Opening Endoscopic (ICD-10-PCS; CPT 43260; principal; 2019-12-26 11:00)
DX: K80.47 Calculus of bile duct with acute and chronic cholecystitis with obstruction (principal); K21.9 Gastro-esophageal reflux disease without esophagitis; J45.909 Unspecified asthma, uncomplicated; Z79.51 Long term (current) use of inhaled steroids
CPT/HCPCS: 71045; 74177; 74300; 74328; 74330; 76000; 80048; 80076; 81001; 81025; 83690; 84484; 85025; 85379; 87426; 88304; 93005; 99251; 99285; J7040; J7120; Q9967; A4216; G0463; J0744; J1610; J2405

== ENCOUNTER 2020-10-05 15:30 | Outpatient (RCR) | payer BC, SELFPAY ==
[2019-12-26 10:03] VITALS: BMI 26.5
--- NOTE | 2020-09-02 18:55 | HP.PTEVAL_ITS ---
Patient's Visit Information ANDREAS REECE is a 35 year old F referred to Physical Therapy by Dr. Arnaldo Palacios DO with a diagnosis of Chronic LBP. Date of Evaluation: 09/02/20 Physical Therapist: VITO Kumar - Visit Plan Frequency: 2x /Week Duration: 4 Weeks Plan: 2X/ week for 4 weeks for core stability program, postural exercises, stretching of the L spine, B hip strength with HEP. HEP given: Clam shells B 2 X 10, bridges 2 X 10, Pt 5 sec hold 2 X 10, PT with leg extension 2 X 10 B - Subjective Pt reports that she has had LBP for years. It has been getting worse over the last 3 months. She takes Tylenol unless she is in really bad pain with minimal relief. She takes Tylenol to get some relief with her FENG. She reports that her neck is really bad but the Dr wanted to start with her LB first. Laying down is not bad and she just props her leg up. Standing for a long time she feels everything stiffens up and tight especially standing still. Sitting for a while she has a hard time getting up... it feels like nothing wants to move. The pain feels like something is going to break and it is a stabbing pain. Bending forward she feels if she bends too far things are going to snap. She has no leg pain. 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 She has a 2.5 year old. She feels that the pain got worse after her . She reports no weakness in her legs. If she squats down for awhile her legs will go pins and needles. She has no trouble doing up and down steps. She is seeing a sange[facility]a Ortho Dr for her spine soon. X-rays showed degeneration - Pain LBP Pain Intensity (Out of 10): 6 - Objective Gait: normal gait pattern. Trunk ROM: Flexion 75%, ext 50%, SB B 100%, Rot B 75%. Pt is able to walk on heels and toes. LE MMT: B hip flex 4-/5, B knee ext 4/5, B knee flex 4/5, B hip abd 4-/5, B hip ext 4-/5. Patella DTR 2+/3 B. -SLUMP test. Increase back pain and HS tightness with SLR. Good pirifomis and quad muscle length. Prone press up pt has increase center of LB pain and slight down the R buttock. Tenderness along the L5 paraspinals. No tenderness along the pirformis. Pt had some increase pain with clam shells on the R (groin pain) - Goals Goal 1:: I HEP Goal Time Frame: 4-6 Weeks Goal 2:: Decrease back pain/ tightness by 50% throughout the day Goal Time Frame: 4-6 Weeks Goal 3:: Sit with upright posture during treatment sessions Goal 4:: Increase hip and LE strength by 1/2 muscle grade (at time of the eval: LE MMT: B hip flex 4-/5, B knee ext 4/5, B knee flex 4/5, B hip abd 4-/5, B hip ext 4-/5) Goal Time Frame: 4-6 Weeks Goal 5:: Be able to complete core program and demonstrate PT with exercises Goal Time Frame: 4-6 Weeks - Rehabilitation Potential Rehabilitation Potential: Good - Anticipated Interventions Patient/Client Instruction: Educate patient on: Condition, Plan of Care For the Purpose of:: To decrease pain, To increase ROM, To improve nutrient delivery to tissue, To improve muscle performance and motor function, To improve ability to perform ADL's, To increase tolerance to activity/condition/position, To improve performance and independence with ADL's, To improve ability of physical actions for home/community/work/leisure, To decrease soft tissue restriction, To increase flexibility/ROM Therapeutic Exercise to Include: Strength training, Endurance training, Body mechanics, Postural training, Flexibilty training, Neuromotor development, Dynamic Lumbar Stabilization, Scapular Strength/Stabilization For the Purpose of:: To decrease pain, To decrease swelling/inflammation, To increase ROM, To improve nutrient delivery to tissue, To improve muscle performance and motor function, To improve ability to perform ADL's, To increase tolerance to activity/condition/position, To decrease soft tissue restriction Manual Therapy Techniques to Include: Mobilization, Passive ROM, Soft tissue mob ilization For the Purpose of:: To decrease pain, To increase ROM, To improve nutrient delivery to tissue, To improve muscle performance and motor function, To improve ability to perform ADL's, To increase tolerance to activity/condition/position, To improve ability of physical actions for home/community/work/leisure, To improve health of tissue, To decrease soft tissue restriction, To increase flexibility/ROM IF ES: Yes Cryotherapy (ice pack, ice massage): Yes Thermo therapy (hot pack): Yes For the Purpose of:: To decrease pain, To increase ROM, To improve nutrient delivery to tissue Thank you for the opportunity to evaluate your patient. For Medicare and Medicare HMO plans, please review the plan of care and approve it. It will need to be FAXED BACK to us at [phone] for Medicare purposes. For Medicare only, by signing this I certify the plan of care. Please let me know if there are questions or concerns regarding this plan of care. Physician Signature: Date:
--- NOTE | 2020-10-05 15:50 | HP.PTDCSUM_ITS ---
It has been my pleasure to treat ANDREAS REECE referred by Dr. Arnaldo Palacios DO, with the diagnosis of Chronic LBP for a total of 9 visit(s). Discharge Date: 10/05/20 Please see the following information for a summary of their discharge status. Subjective: She reports that she still has a lot of pain and a lot of stiffness. She struggles with her limited movement and it feels like her spine will break and pull. She still has a lot of FENG still and constant muscle burning. She has been doing her HEP and has added some additional ball exercises that we have done in clinic at home. LBP Pain Intensity (Out of 10): 2 % Improvement: 25 Objective/Function: LE MMT: B hip flex 4/5, B knee ext 4/5, B knee flex 4+/5, B hip abd 4/5, B hip ext 4/5). Posture: pt sits with upright posture during treatment sesssions Goal 1:: I HEP Goal Progress: Goal Met Goal 2:: Decrease back pain/ tightness by 50% throughout the day Goal Progress: Not Progressing Goal 3:: Sit with upright posture during treatment sessions Goal Progress: Goal Met Goal 4:: Increase hip and LE strength by 1/2 muscle grade (at time of the eval: LE MMT: B hip flex 4-/5, B knee ext 4/5, B knee flex 4/5, B hip abd 4-/5, B hip ext 4-/5) Goal Progress: Progressing Goal 5:: Be able to complete core program and demonstrate PT with exercises Goal Progress: Goal Met Plan: DC PT back to physician or additional diagnostics. Pt is doing a current HEP. Discharge Comments: DC PT to HEP and further diagnostics/physician reassessment If there are questions or concerns regarding this patient's physical therapy, leoncio avalos feel free to call me at [phone]. Thank you for the referral of this patient. Sincerely, Zee Ndiaye, MPT Balance/Gait/Functional tests - Balance/Special Test Scores Oswestry Low Back Score: 11
== END 2020-10-05 19:00 | disposition home or self-care (01) ==
LOC: PT 15:30
PROVIDERS: Referring Provider Student in an Organized Health Care Education/Training Program; Visit Provider Student in an Organized Health Care Education/Training Program
DX: M54.5 Low back pain (principal)
CPT/HCPCS: 97110; 97161; 97530

== ENCOUNTER 2023-06-15 17:38 | Emergency (ER) | payer BC, SELFPAY ==
[2023-06-15 17:38] VITALS: BP 132/86; PULSE 87; RESP 16; TEMP 36.6; O2SAT 100; BMI 26.3
[2023-06-15 18:33] VITALS: BP 110/81; PULSE 93; RESP 16; O2SAT 100
--- NOTE | 2023-06-15 18:38 | EKG12_ITS ---
Test Reason : CP Blood Pressure : / mmHG Vent. Rate : 083 BPM Atrial Rate : 083 BPM P-R Int : 142 ms QRS Dur : 086 ms QT Int : 362 ms P-R-T Axes : 045 082 047 degrees QTc Int : 425 ms Normal sinus rhythm with sinus arrhythmia Normal ECG Confirmed by FRANCESCA PEACE, TOSIN ([id number]), market editor CORIN FELIPE ([id number]) on 06/16/2023 8:20:37 AM Referred By: JACKIE Confirmed By:TOSIN MA MD
--- NOTE | 2023-06-15 18:40 | ED.VIS.CHEST ---
HPI <DONNA Zelaya - Last Filed: 06/15/23 19:52> History of Present Illness Chief Complaint: Chest Pain Narrative Narrative: 37-year-old female states 3 weeks ago she developed dry cough that has been persistent. About that time she also woke up and had hand and leg edema. She saw her primary care doctor and reports she had normal blood work, chest x-ray, and bilateral lower extremity ultrasounds negative for DVT. She was prescribed an antibiotic and steroid for the cough and swelling. The edema has resolved but the cough persisted so she was given a second antibiotic and steroid which she finished a few days ago. She continues to have a frequent dry cough and 5 days ago developed chest pain on the left side of her sternum and under the breast. It hurts to cough or push on the area. She denies shortness of breath or orthopnea. No fever or chills. No abdominal pain. She does not smoke or vape. [facility] <DONNA Zelaya - Last Filed: 06/15/23 19:52> [facility] Medical History (Updated 06/15/23 @ 19:[address] Francisco Lynn MD) Anxiety Depression Home Medications albuterol sulfate 90 mcg/actuation aerosol inhaler 1 - 2 puff inhalation Q4H PRN PRN Sob &/Or Wheezing 12/24/19 [History Last Taken Unknown] medroxyprogesterone 150 mg/mL intramuscular syringe 150 mg IM .[id number] control 12/24/19 [History Last Taken 09/29/19] omeprazole 20 mg capsule,delayed release 20 mg PO DAILY asthma 12/24/19 [History Last Taken 12/24/19] hydrocodone-homatropine 5 mg-1.5 mg/5 mL (5 mL) oral syrup (Hycodan) 5 ml PO Q6H PRN cough 5 days #100 mL 06/15/23 [Rx Last Taken Unknown] naproxen 500 mg tablet 500 mg PO BID #14 tabs 06/15/23 [Rx Last Taken Unknown] sumatriptan succinate 100 mg tablet mg PO 06/15/23 [History Last Taken Unknown] topiramate 50 mg tablet 50 mg PO BID 06/15/23 [History Last Taken Unknown] Allergy/AdvReac Type Severity Reaction Status Date / Time Penicillins AdvReac Hives Verified 06/15/23 17:42 Sulfa (Sulfonamide AdvReac Hives Verified 06/15/23 17:42 Antibiotics) Surgical History History of throat surgery S/P foot surgery, left S/P laparoscopic cholecystectomy S/P wrist surgery Social History (Updated 01/07/20 @ 10:[address] Nica Huitron MD) Smoking Status: Never smoker ROS <DONNA Zelaya - Last Filed: 06/15/23 19:52> ROS ED ROS Narrative Constitutional: Negative for fever, chills, malaise. CVS: Positive for chest pain. Negative for palpitations, syncope. Respiratory: Positive for cough. Negative for shortness of breath, orthopnea. GI: Negative for abdominal pain, nausea, vomiting. EXAM <DONNA Zelaya - Last Filed: 06/15/23 19:52> Physical Exam Narrative Exam Narrative: CONST: Patient sitting in no acute distress. EYES: Normal inspection. NECK: Normal inspection. RESP: No respiratory distress, CTAB. CVS: Regular rate and rhythm, no murmur, no gallop. Chest wall tenderness along the left lower sternal border and under the breast. ABD: Soft and nontender, no guarding or rebound, nondistended. SKIN: Color normal, no rash, warm, dry, intact. EXTREMITIES: Normal appearance, no pedal edema. NEURO: Alert and answering questions appropriately. PSYCH: Normal affect. Const Vital Signs: 06/15/23 17:38 06/15/23 18:25 06/15/23 18:33 Temperature 97.8 F Temperature Source Temporal Pulse Rate 87 93 Respiratory Rate 16 16 Respiratory Effort Normal Blood Pressure 132/86 H 110/81 H Blood Pressure Mean 101 90 Pulse Ox 100 100 Oxygen Delivery Method Room Air Room Air 06/15/23 19:00 Temperature Temperature Source Pulse Rate 88 Respiratory Rate 18 Respiratory Effort Blood Pressure 109/79 Blood Pressure Mean 89 Pulse Ox 100 Oxygen Delivery Method Room Air <Dr. Francisco Lynn MD - Last Filed: 06/15/23 20:06> Physical Exam Const Vital Signs: 06/15/23 17:38 06/15/23 18:25 06/15/23 18:33 Temperature 97.8 F Temperature Source Temporal Pulse Rate 87 93 Respiratory Rate 16 16 Respiratory Effort Normal Blood Pressure 132/86 H 110/81 H Blood Pressure Mean 101 90 Pulse Ox 100 100 Oxygen Delivery Method Room Air Room Air 06/15/23 19:00 Temperature Temperature Source Pulse Rate 88 Respiratory Rate 18 Respiratory Effort Blood Pressure 109/79 Blood Pressure Mean 89 Pulse Ox 100 Oxygen Delivery Method Room Air [facility] <DONNA Zelaya - Last Filed: 06/15/23 19:52> [facility] Narrative Medical decision making narrative: Patient has had about 3 weeks of persistent cough and a few days of left-sided chest pain. She appears well and nontoxic and is hemodynamically stable. She is speaking full sentences and 100% on room air in no distress. Lungs are clear. She is tender over the left lower chest wall with no deformity or crepitus. No rashes present. CXR shows no acute process and EKG is sinus rhythm with no ischemic changes. I suspect she has a muscle strain or costochondritis. She was given an antitussive and NSAID prescription and discharged in stable condition. Differential: Muscular strain, costochondritis, pneumonia, no risk factors for PE or ACS I have personally performed a face to face assessment of the patient and have reviewed the DEE Note. I performed a substantive portion of the visit including all aspects of the following. My willis findings include: History is remarkable for cough for proxy 1 month. She has completed 2 course of antibiotics. She completed 2 course of steroids. She states that the cough has been persistent. 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 She denies fever, chills night sweats. Denies history of PE or DVT. She denies leg pain, swelling discoloration. She denies risk factors for VTE. She states the pain is reproducible. The pain is midclavicular line under her left breast. She denies any other symptoms. Exam is vital signs are normal. HEENT exam is unremarkable. Trachea is midline. There is no stridor. Lungs are clear to auscultation with symmetric breath sounds. Heart is regular. Rate is normal. There is no murmur, gallop or rub. Patient does have reproducible chest pain. Abdomen is soft nontender. Lower extremity exam is a swelling, discoloration, leg Indonesian, palpable cords or tenderness on the distribution of the venous system. Medical Decision Making patient's symptoms are consistent with a chronic bronchitis. Since he has completed 2 courses of antibiotics and 2 courses of prednisone no additional antibiotics or steroids will be dispensed. She was given a prescription for antitussive agent and NSAID for her chest pain. Other additions or changes: [None] Radiography Diagnostic Testing: Clinical Impression(s) from Imaging Studies Chest X-Ray 06/15/23 18:50 IMPRESSION: Normal x-ray examination of the chest. Electronically Signed: James Ruiz MD at 19:11 EDT , ED attending interpretation of 2-view chest x-ray shows normal heart size, no acute infiltrate, edema, or effusion. EKG Initial EKG: Attestation: I personally reviewed and interpreted this EKG as follows: Comments: Normal sinus rhythm with sinus arrhythmia at 83 bpm Normal intervals, no acute ischemic change <Dr. Francisco Lynn MD - Last Filed: 06/15/23 20:06> [facility] Narrative Medical decision making narrative: I have personally performed a face to face assessment of the patient and have reviewed the DEE Note. I performed a substantive portion of the visit including all aspects of the following. My willis findings include: History is remarkable for cough for proxy 1 month. She has completed 2 course of antibiotics. She completed 2 course of steroids. She states that the cough has been persistent. 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 She denies fever, chills night sweats. Denies history of PE or DVT. She denies leg pain, swelling discoloration. She denies risk factors for VTE. She states the pain is reproducible. The pain is midclavicular line under her left breast. She denies any other symptoms. Exam is vital signs are normal. HEENT exam is unremarkable. Trachea is midline. There is no stridor. Lungs are clear to auscultation with symmetric breath sounds. Heart is regular. Rate is normal. There is no murmur, gallop or rub. Patient does have reproducible chest pain. Abdomen is soft nontender. Lower extremity exam is a swelling, discoloration, leg Indonesian, palpable cords or tenderness on the distribution of the venous system. Medical Decision Making patient's symptoms are consistent with a chronic bronchitis. Since he has completed 2 courses of antibiotics and 2 courses of prednisone no additional antibiotics or steroids will be dispensed. She was given a prescription for antitussive agent and NSAID for her chest pain. Other additions or changes: [None] Radiography Diagnostic Testing: Clinical Impression(s) from Imaging Studies Chest X-Ray 06/15/23 18:50 IMPRESSION: Normal x-ray examination of the chest. Electronically Signed: James Ruiz MD at 19:11 EDT , Discharge Plan Triage Chief Complaint: Chest Pain ED Midlevel Provider: Brandee Rodriguez ED Provider: Francisco Lynn Dx/Rx/DC Orders Clinical Impression: Acute chest wall pain, Pleuritic chest pain, Bronchitis Instructions: ED Bronchitis, No Antibiotic (Adult) Prescriptions: New hydrocodone-homatropine [Hycodan] 5-1.5 mg/5 mL (5 mL) syrup 5 ml PO Q6H PRN (Reason: cough) 5 Days Qty: 100 0RF naproxen 500 mg tablet 500 mg PO BID Qty: 14 0RF No Action omeprazole 20 MG capsule 20 mg PO DAILY medroxyprogesterone 150 MG/ML syringe 150 mg IM .[id number] albuterol sulfate 1 PUFF inhaler 1 - 2 puff INHALATION Q4H PRN PRN (Reason: Sob &/Or Wheezing) sumatriptan succinate 100 mg tablet PO topiramate 50 mg tablet 50 mg PO BID Primary Care Provider: Arnaldo Palacios Referrals: Care Physician,No Primary [Non-Staff] -
--- NOTE | 2023-06-15 18:50 | RAD_ITS ---
STUDY: X-RAY CHEST REASON FOR EXAM: Female, 37 years old. cough TECHNIQUE: Frontal and lateral views of the chest. COMPARISON: Chest x-ray December 24, 2019 FINDINGS: The lungs are clear and expanded. There is no demonstrated pleural abnormality. Normal size heart. Normal mediastinum and josefina. Normal visualized pulmonary arteries. Normal visualized aortic arch and descending thoracic aorta. Normal visualized thoracic spine. Normal visualized ribs, clavicles, and shoulders. There is no demonstrated abnormality of the visualized soft tissue structures of the upper abdomen. RAD/Chest PA and Lateral IMPRESSION: Normal x-ray examination of the chest. Electronically Signed: James Ruiz MD at 19:11 EDT ,
[2023-06-15 19:00] VITALS: BP 109/79; PULSE 88; RESP 18; O2SAT 100
[2023-06-15 20:00] VITALS: BP 117/74; PULSE 78; RESP 16; TEMP 36.6; O2SAT 99
== END 2023-06-15 20:21 | disposition home or self-care (01) ==
PROVIDERS: Emergency Provider Emergency Medicine; PCP Student in an Organized Health Care Education/Training Program; Visit Provider Emergency Medicine
DX: R07.89 Other chest pain (principal); R07.81 Pleurodynia; J40 Bronchitis, not specified as acute or chronic
CPT/HCPCS: 71046; 93005; 99282